=== PATIENT | female | born 1950 | race Caucasian/White ===

== ENCOUNTER 2020-09-03 06:56 | Day surgery (SDC) | payer OTHER ==
[~2020-09-03] VITALS: Ht 147.3 cm; Wt 50.3 kg
[~2020-09-03 06:56] MED LIST: DAPA1TAB4 PO; DULA1INJ SC; EZET10TA22 PO; METF-372 PO; MULT1TAB62 PO
[2020-09-03] MEDS ORDERED: LIDOCAINE 2%HCL (LOCAL ANESTH.) INJ 20ML MDV ONE (07:19)
[2020-09-03] MEDS ORDERED: HEPARIN SODIUM (PORCINE) 5000 UNITS/ML 1ML VIAL ONE (08:03)
[2020-09-03] MEDS ORDERED: VERAPAMIL 2.5MG/ML INJ 2ML VIAL IV ONE (08:03)
[2020-09-03] MEDS ORDERED: MIDAZOLAM HCL 1MG/1ML-2 ML VIAL ONE (08:03)
[2020-09-03] MEDS ORDERED: SODIUM CHL 0.9% 0 ML ONE (08:03)
[2020-09-03] MEDS ORDERED: fentaNYL CITRATE 100 MCG/2 ML VL ONE (08:03)
[2020-09-03] MEDS ORDERED: ANGIOMAX 250 MG VIAL IV ONE (08:03)
[2020-09-03] MEDS ORDERED: HYDROcodone-ACET 5/325MG TAB PO PRN (09:15)
[2020-09-03] MEDS ORDERED: ONDANSETRON HCL 4 MG/2 ML VIAL IV PRN (09:15)
[2020-09-03] MEDS ORDERED: ACETAMINOPHEN 500 MG TAB PO PRN (09:15)
== END 2020-09-03 11:55 | disposition home or self-care (01) ==
LOC: CATH 06:56
PROVIDERS: ATTEND Internal Medicine
DX: I25.118 Atherosclerotic heart disease of native coronary artery with other forms of angina pectoris (principal); E78.5 Hyperlipidemia, unspecified; E11.9 Type 2 diabetes mellitus without complications; Z88.8 Allergy status to other drugs, medicaments and biological substances; Z20.822 Contact with and (suspected) exposure to COVID-19
CPT/HCPCS: 93458; C1887; C1894; J1644; J2250; J3010; J7030; U0003; 99152

== ENCOUNTER 2023-02-09 12:40 | Inpatient (IN) | payer OTHER ==
[~2023-02-09] VITALS: Ht 147.3 cm; Wt 59.6 kg
[2023-02-09 14:06] LABS: Basophils # (auto) 0 10 ^3/uL (0-0.2); Eosinophils # (auto) 0.1 10 ^3/uL (0-0.8); Eosinophils % (auto) 0.8 % (0.0-7.0); Hematocrit 35.8 % (36.0-46.0); Hemoglobin 11.2 g/dL (12.2-16.2); Lymphocytes # (auto) 0.3 10 ^3/uL (0.4-5.4); Lymphocytes % (auto) 1.5 % (10.0-50.0); Mean Corpuscular Hemoglobin 27.4 pg (28.0-32.0); Mean Corpuscular Hgb Conc. 31.4 g/dL (32.0-36.0); Mean Corpuscular Volume 87.4 fL (80.0-100.0); Monocytes # (auto) 1.2 10 ^3/uL (0-1.3); Monocytes % (auto) 7.2 % (0.0-12.0); Neutrophils # (auto) 15.7 10 ^3/uL (1.6-8.6); Neutrophils % (auto) 90.5 % (37.0-80.0); Red Cell Distribution Width 14.9 % (11.8-14.3); White Blood Cell 17.3 10^3/uL (4.4-10.8)
[2023-02-09 14:24] LABS: Alanine Aminotransferase 38 U/L (7-40); Albumin 3.9 g/dL (3.2-4.8); Alkaline Phosphatase 140 U/L (46-116); Anion Gap 21.00001 (5-15); Aspartate Aminotransferase 41 U/L (13-40); BUN/Creatinine Ratio 19.7 (10.0-20.0); Bilirubin, Total 0.4 mg/dL (0.2-1.0); Blood Urea Nitrogen 29 mg/dL (9-23); Calcium 8.6 mg/dL (8.5-10.1); Chloride 98 mmol/L (98-107); Potassium 5.1 mmol/L (3.5-5.1); Sodium 129 mmol/L (136-145); Total Protein 6.1 g/dL (5.7-8.2)
[2023-02-09 15:01] LABS: Carbon Dioxide < 10 mmol/L (20-30); Glucose 423 mg/dL (74-106)
[2023-02-09] MEDS ORDERED: INSULIN DRIP 100 UNIT/100ML 100 ML IV SCH ×2 (15:30→18:30)
[2023-02-09] MEDS ORDERED: DEXTROSE (50%) 50ML SYRG IV PRN (15:30)
[2023-02-09] MEDS ORDERED: INSULIN LANTUS (GLARGINE) 1 /0.01ml (100units/ml) SC ONE (15:30)
[2023-02-09] MEDS: ACCU-CHEK COMFORT CURVE STRIP VI SCH ×5 (16:30→22:40)
[2023-02-09 17:02] LABS: Base Excess -18.8 mmol/L (-2.0-2.0)
[2023-02-09 17:07] LABS: Urine Bacteria NONE SEEN /hpf (None Seen); Urine Blood 1+ /uL (Negative); Urine Clarity Clear (Clear); Urine Color Colorless (Yellow); Urine Hyaline Cast FEW /lpf (0 - 2); Urine Protein, UAD 1+ (Negative); Urine Specific Gravity 1.018 (1.001-1.035); Urine Urobilinogen Normal (Negative); Urine WBC 22 /hpf (0 - 5); Urine pH 5.5 (5.0-8.0)
[2023-02-09] MEDS ORDERED: cefTRIAXone 1GM/50ML D5W 50 ML IV ONE (17:15)
[2023-02-09] MEDS: SODIUM CHLORIDE 0.9% 1,000 ML IV SCH (17:15)
[2023-02-09] MEDS ORDERED: NITROGLYCERIN 0.4 MG SL TAB SL PRN (17:15)
[2023-02-09] MEDS ORDERED: SODIUM CHLORIDE 0.9% 1,000 ML IV ONE (17:15)
[2023-02-09 17:17] LABS: Amphetamine Screen, Urine Neg (NEGATIVE); Barbiturate Scree,Urine Neg (NEGATIVE); Benzodiazephine Screen, Urine Neg (NEGATIVE); Cocaine Screen, Urine Neg (NEGATIVE)
[2023-02-09 17:18] LABS: Cannabinoid Screen, Urine Neg (NEGATIVE); Opiate Scree,Urine Neg (NEGATIVE); Phencyclidine Screen, Urine Neg (NEGATIVE)
[2023-02-09 18:22] LABS: COVID19 ANTIGEN SOFIA FIA NEGATIVE (NEGATIVE)
[2023-02-09 21:54] LABS: Lipase 27 U/L (12-53)
[2023-02-09 21:57] LABS: Cholesterol 149 mg/dL (< 200); HDL Cholesterol 39 mg/dL (40-59); Triglycerides 150 mg/dL (< 150)
[2023-02-09 21:58] LABS: LDL Cholesterol 49 mg/dL (< 100)
[2023-02-09] MEDS: MELATONIN 5 MG TAB PO SCH (22:06)
[2023-02-09] MEDS: D5W/SOD CHL 0.45% 1,000 ML IV SCH (22:07)
[2023-02-09 22:17] VITALS: PULSE 106; RESP 26; O2SAT 100
[2023-02-09 22:31] LABS: Rapid Influenza A Negative (Negative); Rapid Influenza B Negative (Negative)
[2023-02-09] MEDS: ONDANSETRON HCL 4 MG/2 ML VIAL IV PRN (22:56)
[2023-02-09] MEDS: MORPHINE SULFATE INJ 2 MG/ml SYRG IV PRN (23:00)
[2023-02-10 00:01] LABS: Chloride 106 mmol/L (98-107); Potassium 3.8 mmol/L (3.5-5.1); Sodium 131 mmol/L (136-145)
[2023-02-10 00:02] LABS: Anion Gap 9 (5-15); Calcium 7.8 mg/dL (8.7-10.4); Carbon Dioxide 16 mmol/L (20-30)
[2023-02-10 00:07] LABS: Blood Urea Nitrogen 23 mg/dL (9-23); Glucose 229 mg/dL (74-106)
[2023-02-10] MEDS: ACCU-CHEK COMFORT CURVE STRIP VI SCH ×16 (00:14→22:39)
[2023-02-10] MEDS: SODIUM CHLORIDE 0.9% 1,000 ML IV SCH ×3 (01:15→17:24)
[2023-02-10] MEDS ORDERED: POTASSIUM EFFERVESENT TAB 25 MEQ PO ONE (06:30)
[2023-02-10 07:11] LABS: Anion Gap 9 (5-15); Calcium 8.1 mg/dL (8.7-10.4); Carbon Dioxide 18 mmol/L (20-30); Chloride 105 mmol/L (98-107); Potassium 3.5 mmol/L (3.5-5.1); Sodium 132 mmol/L (136-145)
[2023-02-10 07:16] LABS: Glucose 151 mg/dL (74-106)
[2023-02-10 07:17] LABS: BUN/Creatinine Ratio 19.1 (10.0-20.0); Blood Urea Nitrogen 21 mg/dL (9-23); Magnesium 1.5 mg/dL (1.6-2.6)
[2023-02-10 07:19] LABS: Phosphorus 1.2 mg/dL (2.4-5.1)
[2023-02-10] MEDS ORDERED: SODIUM PHOSPHATES 24 MEQ in SODIUM CHL 0.9% 100 ML IV ONE (07:30)
[2023-02-10] MEDS ORDERED: MAGNESIUM SULFATE 1GM/100ML 100 ML IV ONE (07:30)
[2023-02-10 07:57] VITALS: PULSE 122; RESP 24; O2SAT 97
[2023-02-10] MEDS: D5W/SOD CHL 0.45% 1,000 ML IV SCH ×2 (09:19→17:25)
[2023-02-10] MEDS: cefTRIAXone 1GM/50ML D5W 50 ML IV SCH (09:32)
[2023-02-10] MEDS ORDERED: ENOXAPARIN SOD 30 MG/0.3 ML SYRINGE SC SCH (10:00)
[2023-02-10] MEDS: INSULIN LANTUS (GLARGINE) 1 /0.01ml (100units/ml) SC SCH ×2 (10:00→14:26)
[2023-02-10] MEDS: PANTOPRAZOLE 40 MG/10 ML VIAL INJ IV SCH (11:03)
[2023-02-10 12:22] LABS: Chloride 107 mmol/L (98-107); Potassium 4.1 mmol/L (3.5-5.1); Sodium 131 mmol/L (136-145)
[2023-02-10 12:23] LABS: Anion Gap 8 (5-15); Calcium 7.7 mg/dL (8.7-10.4); Carbon Dioxide 16 mmol/L (20-30)
[2023-02-10 12:28] LABS: BUN/Creatinine Ratio 14.6 (10.0-20.0); Blood Urea Nitrogen 13 mg/dL (9-23); Glucose 139 mg/dL (74-106)
[2023-02-10 12:29] LABS: Magnesium 1.9 mg/dL (1.6-2.6)
[2023-02-10 12:31] LABS: Phosphorus 1.6 mg/dL (2.4-5.1)
[2023-02-10] MEDS ORDERED: INSULIN DRIP 100 UNIT/100ML 100 ML IV SCH (14:15)
[2023-02-10 19:19] LABS: Chloride 109 mmol/L (98-107); Potassium 3.4 mmol/L (3.5-5.1); Sodium 134 mmol/L (136-145)
[2023-02-10 19:20] LABS: Anion Gap 8 (5-15); Carbon Dioxide 17 mmol/L (20-30)
[2023-02-10 19:21] LABS: Calcium 7.6 mg/dL (8.7-10.4)
[2023-02-10 19:25] LABS: Glucose 87 mg/dL (74-106)
[2023-02-10 19:26] LABS: BUN/Creatinine Ratio 15.3 (10.0-20.0); Blood Urea Nitrogen 13 mg/dL (9-23); Magnesium 1.7 mg/dL (1.6-2.6)
[2023-02-10 19:28] LABS: Phosphorus 1.3 mg/dL (2.4-5.1)
[2023-02-10 19:55] VITALS: PULSE 112; RESP 19; O2SAT 99
[2023-02-10] MEDS: MELATONIN 5 MG TAB PO SCH (21:14)
[2023-02-10] MEDS: ONDANSETRON HCL 4 MG/2 ML VIAL IV PRN (21:14)
[2023-02-10] MEDS: MORPHINE SULFATE INJ 2 MG/ml SYRG IV PRN (21:15)
[2023-02-11] MEDS: ACCU-CHEK COMFORT CURVE STRIP VI SCH ×9 (00:06→18:23)
[2023-02-11 00:13] LABS: Chloride 107 mmol/L (98-107); Potassium 3.4 mmol/L (3.5-5.1); Sodium 131 mmol/L (136-145)
[2023-02-11 00:14] LABS: Anion Gap 6 (5-15); Calcium 6.6 mg/dL (8.7-10.4); Carbon Dioxide 18 mmol/L (20-30)
[2023-02-11 00:19] LABS: BUN/Creatinine Ratio 13.4 (10.0-20.0); Blood Urea Nitrogen 11 mg/dL (9-23); Glucose 396 mg/dL (74-106)
[2023-02-11 00:20] LABS: Magnesium 1.5 mg/dL (1.6-2.6)
[2023-02-11] MEDS: D5W/SOD CHL 0.45% 1,000 ML IV SCH ×2 (01:55→11:00)
[2023-02-11] MEDS: SODIUM CHLORIDE 0.9% 1,000 ML IV SCH ×3 (03:42→15:45)
[2023-02-11 05:23] LABS: Basophils # (auto) 0 10 ^3/uL (0-0.2); Basophils % (auto) 0.2 % (0.0-2.0); Eosinophils # (auto) 0.1 10 ^3/uL (0-0.8); Eosinophils % (auto) 1.1 % (0.0-7.0); Hematocrit 27.7 % (36.0-46.0); Lymphocytes % (auto) 8.6 % (10.0-50.0); Mean Corpuscular Hgb Conc. 32.4 g/dL (32.0-36.0); Mean Corpuscular Volume 83.4 fL (80.0-100.0); Monocytes # (auto) 0.9 10 ^3/uL (0-1.3); Monocytes % (auto) 7.6 % (0.0-12.0); Neutrophils # (auto) 9.9 10 ^3/uL (1.6-8.6); Neutrophils % (auto) 82.5 % (37.0-80.0); Nucleated Red Blood Cells % 0.1 %; Red Blood Cells 3.33 10^6/uL (4.0-5.20); Red Cell Distribution Width 14.9 % (11.8-14.3); White Blood Cell 11.9 10^3/uL (4.4-10.8)
[2023-02-11 05:32] LABS: Anion Gap 9 (5-15); Carbon Dioxide 17 mmol/L (20-30); Chloride 108 mmol/L (98-107); Potassium 3.2 mmol/L (3.5-5.1); Sodium 134 mmol/L (136-145)
[2023-02-11 05:33] LABS: Calcium 7.5 mg/dL (8.7-10.4)
[2023-02-11 05:38] LABS: BUN/Creatinine Ratio 14.3 (10.0-20.0); Blood Urea Nitrogen 11 mg/dL (9-23); Glucose 84 mg/dL (74-106)
[2023-02-11 05:39] LABS: Magnesium 1.6 mg/dL (1.6-2.6)
[2023-02-11 05:40] LABS: Phosphorus 1.1 mg/dL (2.4-5.1)
[2023-02-11 07:40] VITALS: PULSE 98; RESP 27; O2SAT 99
[2023-02-11] MEDS: ENOXAPARIN SOD 40 MG/0.4 ML SYRINGE SC SCH (10:14)
[2023-02-11] MEDS: PANTOPRAZOLE 40 MG/10 ML VIAL INJ IV SCH (10:14)
[2023-02-11] MEDS: INSULIN LANTUS (GLARGINE) 1 /0.01ml (100units/ml) SC SCH ×2 (10:16→22:00)
[2023-02-11] MEDS: cefTRIAXone 1GM/50ML D5W 50 ML IV SCH (10:22)
[2023-02-11] MEDS ORDERED: DEXTROSE (50%) 50ML SYRG IV PRN (11:00)
[2023-02-11] MEDS: InsuLIN REG 1unit/0.01ml Soln (100units/ml) SC SCH ×2 (12:01→18:31)
[2023-02-11] MEDS: ONDANSETRON HCL 4 MG/2 ML VIAL IV PRN (15:53)
[2023-02-11] MEDS: MORPHINE SULFATE INJ 2 MG/ml SYRG IV PRN (18:31)
[2023-02-11 19:12] LABS: Chloride 107 mmol/L (98-107); Potassium 3.3 mmol/L (3.5-5.1); Sodium 133 mmol/L (136-145)
[2023-02-11 19:13] LABS: Anion Gap 10 (5-15); Calcium 7.7 mg/dL (8.5-10.1); Carbon Dioxide 16 mmol/L (20-30)
[2023-02-11 19:18] LABS: Glucose 156 mg/dL (74-106)
[2023-02-11 19:49] VITALS: PULSE 112; RESP 21; O2SAT 97
[2023-02-11 19:54] LABS: Blood Urea Nitrogen 6 mg/dL (9-23)
[2023-02-11] MEDS: MELATONIN 5 MG TAB PO SCH (22:00)
[2023-02-11 23:25] VITALS: PULSE 97; RESP 93; O2SAT 96
[2023-02-12] VITALS (7 sets, daily range): BP systolic 108–151; BP diastolic 47–73; PULSE 90–112; RESP 17–22; TEMP 98.2–101.4; O2SAT 91–97
[2023-02-12] MEDS ORDERED: GLIP5TAB12 PO (00:05)
[2023-02-12] MEDS: ACCU-CHEK COMFORT CURVE STRIP VI SCH ×5 (00:23→23:00)
[2023-02-12] MEDS: D5W/SOD CHL 0.45% 1,000 ML IV SCH (05:35)
[2023-02-12] MEDS: InsuLIN REG 1unit/0.01ml Soln (100units/ml) SC SCH ×5 (05:51→23:00)
[2023-02-12 06:33] LABS: Basophils # (auto) 0 10 ^3/uL (0-0.2); Basophils % (auto) 0.2 % (0.0-2.0); Eosinophils # (auto) 0.1 10 ^3/uL (0-0.8); Eosinophils % (auto) 0.6 % (0.0-7.0); Hematocrit 27.2 % (36.0-46.0); Lymphocytes # (auto) 0.7 10 ^3/uL (0.4-5.4); Lymphocytes % (auto) 6.7 % (10.0-50.0); Mean Corpuscular Hemoglobin 27.6 pg (28.0-32.0); Mean Corpuscular Volume 83.6 fL (80.0-100.0); Monocytes # (auto) 1.2 10 ^3/uL (0-1.3); Monocytes % (auto) 10.8 % (0.0-12.0); Neutrophils # (auto) 8.8 10 ^3/uL (1.6-8.6); Neutrophils % (auto) 81.7 % (37.0-80.0); Red Blood Cells 3.25 10^6/uL (4.0-5.20); Red Cell Distribution Width 15.1 % (11.8-14.3); White Blood Cell 10.8 10^3/uL (4.4-10.8)
[2023-02-12 06:41] LABS: Anion Gap 9 (5-15); Carbon Dioxide 19 mmol/L (20-30); Chloride 108 mmol/L (98-107); Potassium 2.7 mmol/L (3.5-5.1); Sodium 136 mmol/L (136-145)
[2023-02-12 06:43] LABS: Calcium 7.5 mg/dL (8.7-10.4)
[2023-02-12 06:47] LABS: Glucose 89 mg/dL (74-106)
[2023-02-12 06:48] LABS: Blood Urea Nitrogen 8 mg/dL (9-23)
[2023-02-12] MEDS: cefTRIAXone 1GM/50ML D5W 50 ML IV SCH (09:42)
[2023-02-12] MEDS: ENOXAPARIN SOD 40 MG/0.4 ML SYRINGE SC SCH (09:42)
[2023-02-12] MEDS: PANTOPRAZOLE 40 MG/10 ML VIAL INJ IV SCH (09:42)
[2023-02-12] MEDS: INSULIN LANTUS (GLARGINE) 1 /0.01ml (100units/ml) SC SCH ×2 (09:43→22:51)
[2023-02-12] MEDS: MORPHINE SULFATE INJ 2 MG/ml SYRG IV PRN ×2 (12:53→22:17)
[2023-02-12] MEDS ORDERED: ACETAMINOPHEN 325 MG TAB PO PRN (20:30)
[2023-02-12] MEDS ORDERED: DOCUSATE SOD 100 MG CAP PO PRN (20:30)
[2023-02-12] MEDS ORDERED: ACETAMINOPHEN 325 MG TAB PO ONE (22:07)
[2023-02-12] MEDS: MELATONIN 5 MG TAB PO SCH (22:09)
[2023-02-12] MEDS ORDERED: DOCUSATE SOD 100 MG CAP PO ONE (22:14)
[2023-02-13] VITALS (7 sets, daily range): BP systolic 106–143; BP diastolic 47–69; PULSE 90–104; RESP 16–20; TEMP 98.1–99.8; O2SAT 93–97
[2023-02-13] MEDS: D5W/SOD CHL 0.45% 1,000 ML IV SCH (02:39)
[2023-02-13 07:40] LABS: Chloride 108 mmol/L (98-107); Potassium 3.1 mmol/L (3.5-5.1); Sodium 141 mmol/L (136-145)
[2023-02-13 07:41] LABS: Anion Gap 8 (5-15); Calcium 8.1 mg/dL (8.5-10.1); Carbon Dioxide 25 mmol/L (20-30)
[2023-02-13 07:43] LABS: Hematocrit 27.5 % (36.0-46.0); Mean Corpuscular Hemoglobin 27.1 pg (28.0-32.0); Mean Corpuscular Hgb Conc. 32.6 g/dL (32.0-36.0); Red Blood Cells 3.31 10^6/uL (4.0-5.20)
[2023-02-13 07:45] LABS: Basophils % (manual) 0 (0.0-2.0); Blast Cells 0; Promyelocytes % 0; Reactive Lymphocytes 0
[2023-02-13 07:46] LABS: Blood Urea Nitrogen 7 mg/dL (9-23); Glucose 124 mg/dL (74-106)
[2023-02-13 08:32] LABS: Band Neutrophils % (manual) 8; Eosinophils % (manual) 1 (0-7); Lymphocytes % (manual) 5 (10.0-50.0); Metamyelocytes % 2; Monocytes % (manual) 6 (0-12); Myelocytes % 2; Platelet Estimate Adequate
[2023-02-13] MEDS: SODIUM CHLORIDE 0.9% 1,000 ML IV SCH ×3 (09:06→15:54)
[2023-02-13] MEDS: cefTRIAXone 1GM/50ML D5W 50 ML IV SCH (09:06)
[2023-02-13] MEDS: PANTOPRAZOLE 40 MG/10 ML VIAL INJ IV SCH (09:49)
[2023-02-13] MEDS: ENOXAPARIN SOD 40 MG/0.4 ML SYRINGE SC SCH (09:51)
[2023-02-13] MEDS: INSULIN LANTUS (GLARGINE) 1 /0.01ml (100units/ml) SC SCH ×2 (10:01→23:21)
[2023-02-13] MEDS: ACCU-CHEK COMFORT CURVE STRIP VI SCH ×3 (11:57→23:19)
[2023-02-13] MEDS: InsuLIN REG 1unit/0.01ml Soln (100units/ml) SC SCH ×3 (11:59→23:18)
[2023-02-13] MEDS ORDERED: POTASSIUM CHL 20 Meq TABLET PO ONE ×2 (15:30→16:00)
[2023-02-13] MEDS ORDERED: LACTULOSE 20Gm/30ML SOLN PO ONE (15:45)
[2023-02-13] MEDS ORDERED: LACTULOSE 20Gm/30ML SOLN ONE (15:59)
[2023-02-13] MEDS ORDERED: LACTULOSE 20Gm/30ML SOLN PO PRN ×2 (17:30→22:00)
[2023-02-13] MEDS: MELATONIN 5 MG TAB PO SCH (21:23)
[2023-02-13] MEDS: MORPHINE SULFATE INJ 2 MG/ml SYRG IV PRN (21:29)
[2023-02-14] MEDS: SODIUM CHLORIDE 0.9% 1,000 ML IV SCH ×3 (04:27→15:45)
[2023-02-14] MEDS: D5W/SOD CHL 0.45% 1,000 ML IV SCH (04:27)
[2023-02-14 04:49] VITALS: BP 145/61; PULSE 94; RESP 16; TEMP 99.2; O2SAT 99
[2023-02-14] MEDS: ACCU-CHEK COMFORT CURVE STRIP VI SCH ×3 (05:41→18:59)
[2023-02-14] MEDS: InsuLIN REG 1unit/0.01ml Soln (100units/ml) SC SCH ×3 (05:41→18:00)
[2023-02-14 06:27] LABS: Hematocrit 27.8 % (36.0-46.0); Hemoglobin 9.1 g/dL (12.2-16.2); Mean Corpuscular Hemoglobin 27.2 pg (28.0-32.0); Mean Corpuscular Hgb Conc. 32.7 g/dL (32.0-36.0); Mean Corpuscular Volume 83.3 fL (80.0-100.0); Red Blood Cells 3.34 10^6/uL (4.0-5.20); Red Cell Distribution Width 15.2 % (11.8-14.3); White Blood Cell 13.8 10^3/uL (4.4-10.8)
[2023-02-14 06:36] LABS: Anion Gap 8 (5-15); Carbon Dioxide 22 mmol/L (20-30); Chloride 108 mmol/L (98-107); Potassium 2.8 mmol/L (3.5-5.1); Sodium 138 mmol/L (136-145)
[2023-02-14 06:37] LABS: Calcium 7.7 mg/dL (8.7-10.4)
[2023-02-14 06:42] LABS: Glucose 82 mg/dL (74-106)
[2023-02-14 06:43] LABS: BUN/Creatinine Ratio 6.9 (10.0-20.0); Blood Urea Nitrogen < 5 mg/dL (9-23)
[2023-02-14 07:09] LABS: Basophils % (manual) 0 (0.0-2.0); Blast Cells 0; Eosinophils % (manual) 0 (0-7); Metamyelocytes % 0; Myelocytes % 0; Promyelocytes % 0; Reactive Lymphocytes 0
[2023-02-14 08:00] VITALS: PULSE 94; PULSE 99; RESP 18
[2023-02-14 08:52] LABS: Band Neutrophils % (manual) 2; Lymphocytes % (manual) 13 (10.0-50.0); Monocytes % (manual) 5 (0-12)
[2023-02-14 08:53] LABS: Platelet Estimate Adequate
[2023-02-14 09:00] VITALS: BP 105/52; PULSE 94; RESP 20; TEMP 98.7; O2SAT 98
[2023-02-14 09:06] VITALS: BP 105/52; PULSE 94; RESP 20; TEMP 98.7; O2SAT 93
[2023-02-14] MEDS: PANTOPRAZOLE 40 MG/10 ML VIAL INJ IV SCH (10:55)
[2023-02-14] MEDS: ENOXAPARIN SOD 40 MG/0.4 ML SYRINGE SC SCH (10:55)
[2023-02-14] MEDS: MORPHINE SULFATE INJ 2 MG/ml SYRG IV PRN (10:55)
[2023-02-14] MEDS: cefTRIAXone 1GM/50ML D5W 50 ML IV SCH (10:56)
[2023-02-14] MEDS: INSULIN LANTUS (GLARGINE) 1 /0.01ml (100units/ml) SC SCH (11:21)
[2023-02-14 13:00] VITALS: BP 132/67; PULSE 101; RESP 20; TEMP 98; O2SAT 95
[2023-02-14] MEDS ORDERED: INSU-567 XX (15:33)
[2023-02-14] MEDS ORDERED: BLOO1KIT60 XX (15:33)
[2023-02-14] MEDS ORDERED: INSLANTI SC (15:33)
[2023-02-14 16:28] VITALS: BP 122/59; PULSE 100; RESP 20; TEMP 98.4; O2SAT 92
== END 2023-02-14 19:35 | disposition home health service (06) | DRG 638 ==
LOC: ER 12:40 → EDBD 12:40 → TELE 17:06 → TELE-WESTW 02-11 17:06 → WEST WING 02-11 23:48 → TELE-WESTW 02-11 23:55
PROVIDERS: ADMIT Hospitalist; ATTEND Hospitalist
DX: E11.10 Type 2 diabetes mellitus with ketoacidosis without coma (principal); E87.1 Hypo-osmolality and hyponatremia; N39.0 Urinary tract infection, site not specified; N17.9 Acute kidney failure, unspecified; I25.10 Atherosclerotic heart disease of native coronary artery without angina pectoris; I10 Essential (primary) hypertension; K59.00 Constipation, unspecified; D72.829 Elevated white blood cell count, unspecified; Z20.822 Contact with and (suspected) exposure to COVID-19; E78.5 Hyperlipidemia, unspecified; Z91.199 Patient's noncompliance with other medical treatment and regimen due to unspecified reason
CPT/HCPCS: 36415; 36600; 71045; 80048; 80053; 80061; 80307; 81001; 82805; 82962; 83036; 83605; 83690; 83735; 83880; 84100; 84484; 85007; 85025; 85027; 87040; 87077; 87086; 87186; 87426; 87804; 93005; 93306; 96365; 96372; 99291; C9113; G0378; J1815; J2405

== ENCOUNTER 2024-07-27 16:32 | Inpatient (IN) | payer OTHER ==
[~2024-07-27] VITALS: Ht 148.6 cm; Wt 48.7 kg
[~2024-07-27 16:32] MED LIST changes: +BLOO1KIT60 XX; -DAPA1TAB4 PO; -DULA1INJ SC; -EZET10TA22 PO; +GLIP5TAB21 PO; +INSLANTI SC; +INSU-567 XX; -MULT1TAB62 PO
[2024-07-27] MEDS: SODIUM CHLORIDE 0.9% 1,000 ML IV ONE ×2 (16:57→21:15)
[2024-07-27 17:02] VITALS: PULSE 80; RESP 15; O2SAT 95
--- NOTE | 2024-07-27 17:11 | ED.PDOC ---
History of Present Illness HPI Comments This 74-year-old female who comes in with chief complaint of generalized weakness for the past three days. The patient denies any vomiting or diarrhea. The patient does have a history of diabetes and when the paramedics arrived, the patient had an Accu-Chek of [phone]. There has been no chest pain or shortness for breath. The patient is complaining of some nausea as well as polyuria as well as polydipsia. EN route, the patient's blood pressure was 164/73. The patient was given normal saline EN route. Upon arrival, the patient's Accu-Chek was 322. Chief Complaint: Hyperglycemia Time Seen by MD: 16:35 Primary Care Provider: UNKNOWN Reviewed Notes: Nurses Notes, Forensic Accountant Notes, Medications, Allergies (Allergies listed above) Allergies: Coded Allergies: Pseudoephedrine (Verified Adverse Reaction, Intermediate, PALPITATIONS, 02/09/23) Home Meds Active Scripts Insulin Syringe/Needle U-100 (ADVOCATE INSULIN SYRINGE/) 0.5 Mg/31 G Mis, MG XX, #30 Prov:YNES PAYNE MD 02/14/23 Blood Glucose Monitoring Suppl (D-Care Glucometer Kit/Glu W/Device) 1 Kit Kit, KIT XX, #1 Prov:YNES PAYNE MD 02/14/23 Insulin Glargine (Lantus) 100 Unit/Ml Inj, 15 UNITS SC BID for 30 Days, #30 INJ Prov:YNES PAYNE MD 02/14/23 Reported Medications Glipizide (Glipizide) 5 Mg Tab, 2 TAB PO BID 02/12/23 Metformin Hydrochloride (Metformin Hcl) 1,000 Mg Tab, 1 TAB PO BID for DIABETES 08/30/20 Information Source: Patient, Emergency Med Personnel Mode of Arrival: EMS Severity: Moderate Timing: Days Duration: Since onset Prehospital treatment: Accucheck (456), 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, IVF Associated signs and symptoms Associated shaking with nausea and polyuria and polydipsia Past Medical History PAST MEDICAL HISTORY: DM, High Lipids Surgical History: Appendectomy, Hysterectomy, Tonsillectomy Surgical History (Other): Right knee surgery LINE SERVICE SUPERVISOR History: Denies all LINE SERVICE SUPERVISOR Hx Family History Family History: Family hx of Cancer Social History Smoker: Non-Smoker Alcohol: Occasionally Drugs: Denies Drug Use Lives In: Home Constitutional: reports: weakness, others (Shaking); denies: chills, diaphoresis, fatigue, fever, malaise, sweats EENTM: denies: blurred vision, double vision, ear bleeding, ear discharge, ear drainage, ear pain, ear ringing, eye pain, eye redness, hearing loss, mouth ty n, mouth swelling, nasal discharge, nose bleeding, nose congestion, nose pain, photophobia, tearing, throat pain, throat swelling, voice changes, others Respiratory: denies: cough, hemoptysis, orthopnea, SOB at rest, shortness of breath, SOB with excertion, stridor, wheezing, others Cardiovascular: denies: chest pain, dizzy spells, diaphoresis, Dyspnea on exertion, edema, irregular heart beat, left arm pain, lightheadedness, palpitations, PND, syncope, others Gastrointestinal: reports: nausea; denies: abdomen distended, abdominal pain, blood streaked bowels, constipated, diarrhea, dysphagia, difficulty swallowing, hematemesis, melena, poor appetite, poor fluid intake, rectal bleeding, rectal pain, vomiting, others Genitourinary: denies: abnormal vagina bleeding, burning, dyspareunia, dysuria, flank pain, frequency, hematuria, incontinence, pain, , vagina discharge, urgency, others Neurological: denies: dizziness, fainting, headache, left sided numbness, left sided weakness, numbness, paresthesia, pre-existing deficit, right sided numbness, right sided weakness, seizure, speech problems, tingling, tremors, weakness, others Musculoskeletal: denies: back pain, gout, joint pain, joint swelling, muscle pain, muscle stiffness, neck pain, others Integumetry: denies: bruises, change in color, change in hair/nails, dryness, laceration, lesions, lumps, rash, wounds, others Allergic/Immunocompromised: denies: Difficulty Healing, Frequent Infections, Hives, Itching, others Hematologic/Lymphatic: denies: anemia, blood clots, easy bleeding, easy bruisin g, swollen glands, others Endocrine: reports: excessive thirst, excessive urination; denies: excessive hunger, excessive sweating, flushing, intolerance to cold, intolerance to heat, unexplained weight gain, unexplained weight loss, others Psychiatric: denies: anxiety, bipolar disorder, depression, hopeless, panic disorder, schizophrenia, sleepless, suicidal, others Physical Exam General Appearance: Moderate Distress, Thin HEENT: Normal ENT Inspection, Pharynx Normal, TMs Normal Neck: Full Range of Motion, Non-Tender, Normal, Normal Inspection Respiratory: Chest Non-Tender, Lungs Clear, No Accessory Muscle Use, No Respiratory Distress, Normal Breath Sounds Cardiovascular: No Edema, No JVD, No Murmur, No Gallop, Normal Peripheral Pulses, Regular Rate/Rhythm Breast Exam: Deferred Gastrointestinal: No Organomegaly, Non Tender, No Pulsatile Mass, Normal Bowel Sounds, Soft Genitalia: Deferred Pelvic: Deferred Rectal: Deferred Extremities: No calf tenderness, Normal capillary refill, No pedal edema Musculoskeletal : Apperance: Normal Neurologic: Alert, strike off machine operator II-XII nml as Tested, Motor Weakness, Normal Mood, No Sensory Deficits Cerebellar Function: Unable to Test Reflexes: Normal Skin: Dry, Pallor, Warm Lymphatic: No Adenopathy Was a procedure done? Was a procedure done?: No EKG EKG : Pulse Rate (adult): 87 Kyle: Normal Cardiac Rhythm: NSR Block: None ST: Nonsp Differential Dx Considerations may include: DKA, generalized weakness, hyperglycemia, UTI, sepsis X-Ray, Labs, Meds, VS Vital Signs Date Time Temp Pulse Resp B/P (MAP) Pulse Ox O2 Delivery O2 Flow Rate FiO2 07/27/24 18:00 81 22 145/82 (103) 92 07/27/24 17:11 87 07/27/24 17:04 98.3 85 19 137/89 (105) 93 98.3 07/27/24 17:02 80 15 95 Room Air* 0 21 07/27/24 16:47 98.7 89 20 164/73 (103) 95 98.7 07/27/24 16:36 87 Lab Test 07/27/24 17:30 07/27/24 17:28 07/27/24 17:07 07/27/24 16:54 Range/Units White Blood Count 7.0 4.4-10.8 10^3/uL Red Blood Count 4.78 4.0-5.20 10^6/uL Hemoglobin 12.9 12.2-16.2 g/dL Hematocrit 40.1 36.0-46.0 % Mean Corpuscular Volume 83.8 80.0-100.0 fL Mean Corpuscular Hemoglobin 27.0 L 28.0-32.0 pg Mean Corpuscular Hemoglobin Concent 32.2 32.0-36.0 g/dL Red Cell Distribution Width 14.1 11.8-14.3 % Platelet Count 305 140-450 10^3/uL Mean Platelet Volume 8.0 6.9-10.8 fL Neutrophils (%) (Auto) 68.1 37.0-80.0 % Lymphocytes (%) (Auto) 23.3 10.0-50.0 % Monocytes (%) (Auto) 5.9 0.0-12.0 % Eosinophils (%) (Auto) 1.5 0.0-7.0 % Basophils (%) (Auto) 1.2 0.0-2.0 % Neutrophils # (Auto) 4.8 1.6-8.6 10 ^3/uL Lymphocytes # (Auto) 1.6 0.4-5.4 10 ^3/uL Monocytes # (Auto) 0.4 0-1.3 10 ^3/uL Eosinophils # (Auto) 0.1 0-0.8 10 ^3/uL Basophils # (Auto) 0.1 0-0.2 10 ^3/uL Nucleated Red Blood Cells 0.0 % Sodium Level 140 136-145 mmol/L Potassium Level 5.1 3.5-5.1 mmol/L Chloride Level 108 H 98-107 mmol/L Carbon Dioxide Level 19 L 20-31 mmol/L Anion Gap 13 5-15 Blood Urea Nitrogen 20 9-23 mg/dL Creatinine 1.11 H 0.550-1.02 mg/dL Glomerular Filtration Rate Calc 52 >90 mL/min BUN/Creatinine Ratio 18.0 10.0-20.0 Serum Glucose 387 H 74-106 mg/dL Calcium Level 9.6 8.7-10.4 mg/dL Beta-Hydroxybutyric Acid > 4.500 H < 0.4 mmol/L Blood Gas Specimen Type Arterial Blood Gas Sample Site Right radial Blood Gas Patient Temperature 37.0 Arterial Blood Date Drawn [id number] Arterial Blood pH 7.352 7.350-7.450 Arterial Blood Partial Pressure CO2 28.0 L 32.0-45.0 mmHg Arterial Blood Partial Pressure O2 71.3 L 83.0-108.0 mmHg Arterial Blood HCO3 15.2 L 21.0-28.0 mmol/L Arterial Blood Oxygen Saturation 93.1 L 94.0-98.0 % Arterial Blood Base Excess -8.9 L -2.0-3.0 mmol/L Arterial Blood Oxyhemoglobin 92.1 L 94.0-98.0 % Arterial Blood Carboxyhemoglobin 1.1 0.5-1.5 % Arterial Blood Methemoglobin 0.0 0.0-1.5 % Christian Test Yes Blood Gas Total Hemoglobin 13.30 12.0-16.0 g/dL Blood Gas Modality Room air FiO2 % 21.0 Urine Color Colorless Yellow Urine Clarity Clear Clear Urine pH 5.5 5.0-9.0 Urine Specific [place] 1.016 1.001-1.035 Urine Protein Negative Negative Urine Ketones 2+ H Negative Urine Blood Negative Negative /uL Urine Nitrite 2+ H Negative Urine Bilirubin Negative Negative Urine Urobilinogen Normal Negative mg/dL Urine Leukocyte Esterase Negative Negative /uL Urine RBC <1 0 - 4 /hpf Urine Microscopic WBC < 1 0-5 /HPF Urine Squamous Epithelial Cells Few <5 /hpf Urine Bacteria None seen None Seen /hpf Urine Mucus Few None Seen Urine Glucose 4+ H Normal mg/dL POC Glucose 380 H 70-106 mg/dl Current Medications Medications (Trade) Dose Ordered Sig/Barbara Route Start Time Stop Time Status Last Admin Sodium Chloride 1,000 ml @ 1,000 mls/hr Q1H ONCE IV 07/27/24 17:00 07/27/24 17:59 DC 07/27/24 16:57 IV Hep-Lock was established The patient was given a 1 L bolus of normal saline The urine test is negative for any infection The CBC is within normal limits The chemistry panel is within normal limits The beta hydroxybutyric acid is greater than 4.5 At this time, the patient is admitted to the hospitalist The patient understands and agrees with the management. Images Reviewed?: Images reviewed and evaluated by me Time of 1ST Reevaluation: 17:10 Reevaluation 1ST: Unchanged Patient Education/Counseling: Diagnosis, Treatment, Prognosis Family Education/Counseling: No Family Present Departure 1 Departure Time of Disposition: 18:47 Impression: Primary Impression: Uncontrolled diabetes mellitus Qualified Codes: E13.65 - Other specified diabetes mellitus with hyperglycemia Additional Impression: Generalized weakness Disposition: 09 ADMITTED INPATIENT Admit to: [facility] Condition: Fair Critical Care Note Critical Care Time?: Yes (55 min-critical care time only) Stability Stability form required: Yes Unstable for transfer: Telemetry monitoring (Telemetry monitoring required), ED Physician Assesment (Clinical assesment) Heart Score Heart Score: Heart Score Response (Comments) Value History N/A 0 EKG N/A 0 Age N/A 0 Risk Factors N/A 0 Troponin N/A 0 Total 0 SPIKE ALONSO MD July 27, 2024 17:11
[2024-07-27 17:36] LABS: Base Excess -8.9 mmol/L (-2.0-3.0)
[2024-07-27 17:52] LABS: Urine Bacteria None Seen /hpf (None Seen)
[2024-07-27 17:54] LABS: Basophils # (auto) 0.1 10 ^3/uL (0-0.2); Basophils % (auto) 1.2 % (0.0-2.0); Eosinophils # (auto) 0.1 10 ^3/uL (0-0.8); Eosinophils % (auto) 1.5 % (0.0-7.0); Hematocrit 40.1 % (36.0-46.0); Hemoglobin 12.9 g/dL (12.2-16.2); Lymphocytes # (auto) 1.6 10 ^3/uL (0.4-5.4); Lymphocytes % (auto) 23.3 % (10.0-50.0); Mean Corpuscular Hgb Conc. 32.2 g/dL (32.0-36.0); Mean Corpuscular Volume 83.8 fL (80.0-100.0); Monocytes # (auto) 0.4 10 ^3/uL (0-1.3); Monocytes % (auto) 5.9 % (0.0-12.0); Neutrophils # (auto) 4.8 10 ^3/uL (1.6-8.6); Neutrophils % (auto) 68.1 % (37.0-80.0); Platelet Count (auto) 305 10^3/uL (140-450); Red Blood Cells 4.78 10^6/uL (4.0-5.20); Red Cell Distribution Width 14.1 % (11.8-14.3)
[2024-07-27 17:57] LABS: Sodium 140 mmol/L (136-145)
[2024-07-27 17:58] LABS: Anion Gap 13 (5-15)
[2024-07-27 17:59] LABS: Calcium 9.6 mg/dL (8.7-10.4)
[2024-07-27 18:04] LABS: Blood Urea Nitrogen 20 mg/dL (9-23)
[2024-07-27 18:08] LABS: Carbon Dioxide 19 mmol/L (20-31); Chloride 108 mmol/L (98-107); Glucose 387 mg/dL (74-106); Potassium 5.1 mmol/L (3.5-5.1)
[2024-07-27 18:20] LABS: Urine Blood Negative /uL (Negative); Urine Clarity Clear (Clear); Urine Color Colorless (Yellow); Urine Mucus FEW (None Seen); Urine Protein, UAD Negative (Negative); Urine Specific Gravity 1.016 (1.001-1.035); Urine Squamous Epithelial Cell FEW /hpf (<5); Urine Urobilinogen Normal (Negative); Urine pH 5.5 (5.0-9.0)
[2024-07-27 18:21] LABS: Urine WBC < 1 /HPF (0-5)
--- NOTE | 2024-07-27 18:21 | DVH ---
CHEST RADIOGRAPH Indication: Hyperglycemia as well as weakness Technique: Single frontal view of the chest was obtained Comparison: XY CHEST PORTABLE on DOS: 02/09/23 FINDINGS: Lines and Tubes: None Lungs: No focal consolidation. Pleura: No effusion. No pneumothorax. Cardiomediastinal contours: Unremarkable Bones: No acute osseous abnormality. IMPRESSION: No acute cardiopulmonary disease.
[2024-07-27 20:00] VITALS: PULSE 87; RESP 18; O2SAT 94
[2024-07-27] MEDS ORDERED: DEXTROSE (50%) 50ML SYRG IV PRN (21:15)
[2024-07-27] MEDS ORDERED: ONDANSETRON HCL 4 MG/2 ML VIAL IV PRN (21:15)
--- NOTE | 2024-07-27 21:57 | DVH ---
CT HEAD WITHOUT CONTRAST INDICATION: dizziness, headaches COMPARISON: None TECHNIQUE: CT of the head without intravenous contrast. RADIATION DOSE: CTDIvol: mGy, DLP: mGy*cm FINDINGS: There is no evidence of intracranial hemorrhage, infarct, extra-axial collection, mass effect, midlin e shift, herniation or hydrocephalus. The ghosh-white differentiation is intact. Mild ventricular and sulcal enlargement related to mild cerebral volume loss. Chronic mucosal thickening in left sphenoid sinus, small mucus retention cyst in left maxillary sinus . Otherwise unremarkable. Mastoid air cells and middle ear cavities are clear. Soft tissues and osseo us structures are unremarkable. IMPRESSION: No intracranial abnormality identified.
[2024-07-27] MEDS: ACCU-CHEK COMFORT CURVE STRIP VI SCH (22:04)
[2024-07-27] MEDS: InsuLIN REG 1unit/0.01ml Soln (100units/ml) SC SCH (22:16)
[2024-07-27] MEDS: INSULIN LANTUS (GLARGINE) 1 /0.01ml (100units/ml) SC ONE (23:15)
[2024-07-28] VITALS (9 sets, daily range): BP systolic 138–174; BP diastolic 76–89; PULSE 80–99; RESP 16–18; TEMP 98.1–98.9; O2SAT 94–98
[2024-07-28 02:15] LABS: Potassium 4.1 mmol/L (3.5-5.1); Sodium 140 mmol/L (136-145)
[2024-07-28 02:16] LABS: Anion Gap 9 (5-15); Calcium 8.8 mg/dL (8.7-10.4); Carbon Dioxide 23 mmol/L (20-31)
[2024-07-28 02:21] LABS: Blood Urea Nitrogen 19 mg/dL (9-23)
[2024-07-28 02:26] LABS: Chloride 108 mmol/L (98-107); Glucose 251 mg/dL (74-106)
--- NOTE | 2024-07-28 02:54 | DVHHP2 ---
Admitting Diagnosis: Dizziness, Palpitations, DM with uncontrolled hyperglycemia History of Present Illness History Source: Patient Exam Limitations: No limitations HPI Mrs. Adrienne Scott 74-year-old female with a history of DM2, HLD, appendectomy, hysterectomy, tonsillectomy who presents with a chief complaint of generalized weakness, bilateral upper extremity tingling for the past three days. The patient denies any vomiting or diarrhea. Patient reports she was having dizziness, palpitations and an episode of "blacking out" for a couple of seconds without any syncopal episode. Patient reports she has not been taking her antidiabetics x 2 days due to not feeling well and having a poor appetite. Patient denies chest pain, dyspnea, blurry vision, nausea, vomiting, fevers, chills. Patient admitted for further evaluation. Home Meds Active Scripts Insulin Glargine (Lantus) 100 Unit/Ml Inj, 15 UNITS SC BID for 30 Days, #30 INJ Prov:YNES PAYNE MD 02/14/23 Reported Medications Insulin Detemir (Levemir) Inj, 25 UNIT SC BID 07/28/24 Ezetimibe (Ezetimibe) 10 Mg Tab, 1 TAB PO DAILY 07/28/24 Sertraline HCl (Sertraline HCl) 50 Mg Tab, 1 TAB PO DAILY 07/28/24 Semaglutide (Rybelsus) 7 Mg Tab, 1 TAB PO DAILY 07/28/24 Metformin Hydrochloride (Metformin Hcl) 1,000 Mg Tab, 1 TAB PO BID for DIABETES 08/30/20 Past Medical History Cardiac: Hyperlipidemia Pulmonary: No pertinent Hx Central Nervous System: No pertinent Hx GI: No pertinent Hx Hemotology/Oncology: No pertinent Hx Hepatobiliary: No pertinent Hx Psychiatric: No pertinent Hx Musculoskeletal: No pertinent Hx Rheumotologic: No pertinent Hx Infectious Disease: No peritnent Hx ENT: No pertinent Hx Renal/: No pertinent Hx Endocrine: NIDDM Dermatology: No pertinent Hx Past Surgical History: Appendectomy, Hysterctomy, Tonsillectomy Patient Family History: FH: cancer G8 MOTHER G8 FATHER Smoker: No Hx (Negative) Alocohol: None Drugs: None Lives with: With family Domestic Violence: Neg Review of Systems Constitutional: Weakness Ears, Nose, & Throat: No symptom reported Eyes: No symptom reported Pulmonary/Respiratory: No symptom reported Cardiovascular: Palpitations, Lt Headedness Gastrointestinal: No symptom reported Genitourinary: No symptom reported Musculoskeletal: No symptom reported Skin: No symptom reported Psychiatric: No symptom reported Endocrine: No symptom reported Hemotologic/Lymphatic: No symptom reported All Other Systems Dizziness H&P Exam Vital Signs Vital Signs Date Time Temp Pulse Resp B/P (MAP) Pulse Ox O2 Delivery O2 Flow Rate FiO2 07/27/24 21:59 108 22 151/71 (97) 96 07/27/24 20:00 Room Air* 0 21 07/27/24 19:45 98.9 98.9 General Appeara: Well developed, Well nourished, Normal Appearance Head Exam: Normal inspection Neck Exam: Normal inspection, Non-tender, Normal alignment Eye Exam: bilateral eye Normal inspection, bilateral eye PERRL, bilateral eye EOMI Ear Exam: bilateral ear Auricle normal Nasal Exam: Normal inspection Mouth: Normal Inspection Pulmonary/Respiratory: Normal inspection, Normal breath sounds, Chest non- tender, Lungs clear Cardiovascular/Chest: Normal inspection, Regular rate, Normal Rhythm Peripheral Pulses: 2+ dorsalis pedis (R), 2+ dorsalis pedis (L), 2+ Radial (R), 2+ Radial (L) Abdominal Exam: Normal bowel sounds, Soft, No tenderness Rectal Exam: Deferred Pelvic Exam: Not done 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: Normal hearing, Normal speech, PERRL Motor/Sensory: Normal sensory function, Normal motor function Neuro/Mental St: Alert, Oriented Appearance: Appropriate appearance, Appropriate insight Eye contact/ Speech: Cooperative, Good eye contact, Normal speech Thoughts/Psych: Normal thought pattern Skin Exam: Normal inspection, Normal color, Warm/dry Labs/Xrays Labs Test 07/28/24 01:49 07/27/24 22:03 07/27/24 17:30 07/27/24 17:28 Range/Units Sodium Level 140 136-145 mmol/L Potassium Level 4.1 3.5-5.1 mmol/L Chloride Level 108 H 98-107 mmol/L Carbon Dioxide Level 23 20-31 mmol/L Anion Gap 9 5-15 Blood Urea Nitrogen 19 9-23 mg/dL Creatinine 1.12 H 0.550-1.02 mg/dL Glomerular Filtration Rate Calc 52 >90 mL/min BUN/Creatinine Ratio 17.0 10.0-20.0 Serum Glucose 251 H 74-106 mg/dL Calcium Level 8.8 8.7-10.4 mg/dL Troponin I High Sensitivity 5 </=34 ng/L POC Glucose 517 *H 70-106 mg/dl White Blood Count 7.0 4.4-10.8 10^3/uL Red Blood Count 4.78 4.0-5.20 10^6/uL Hemoglobin 12.9 12.2-16.2 g/dL Hematocrit 40.1 36.0-46.0 % Mean Corpuscular Volume 83.8 80.0-100.0 fL Mean Corpuscular Hemoglobin 27.0 L 28.0-32.0 pg Mean Corpuscular Hemoglobin Concent 32.2 32.0-36.0 g/dL Red Cell Distribution Width 14.1 11.8-14.3 % Platelet Count 305 140-450 10^3/uL Mean Platelet Volume 8.0 6.9-10.8 fL Neutrophils (%) (Auto) 68.1 37.0-80.0 % Lymphocytes (%) (Auto) 23.3 10.0-50.0 % Monocytes (%) (Auto) 5.9 0.0-12.0 % Eosinophils (%) (Auto) 1.5 0.0-7.0 % Basophils (%) (Auto) 1.2 0.0-2.0 % Neutrophils # (Auto) 4.8 1.6-8.6 10 ^3/uL Lymphocytes # (Auto) 1.6 0.4-5.4 10 ^3/uL Monocytes # (Auto) 0.4 0-1.3 10 ^3/uL Eosinophils # (Auto) 0.1 0-0.8 10 ^3/uL Basophils # (Auto) 0.1 0-0.2 10 ^3/uL Nucleated Red Blood Cells 0.0 % Beta-Hydroxybutyric Acid > 4.500 H < 0.4 mmol/L Thyroid Stimulating Hormone (TSH) 0.84 0.55-4.78 uIU/mL Free Thyroxine (T4) Calculated 1.17 0.89-1.76 ng/dL Blood Gas Specimen Type Arterial Blood Gas Sample Site Right radial Blood Gas Patient Temperature 37.0 Arterial Blood Date Drawn [id number] Arterial Blood pH 7.352 7.350-7.450 Arterial Blood Partial Pressure CO2 28.0 L 32.0-45.0 mmHg Arterial Blood Partial Pressure O2 71.3 L 83.0-108.0 mmHg Arterial Blood HCO3 15.2 L 21.0-28.0 mmol/L Arterial Blood Oxygen Saturation 93.1 L 94.0-98.0 % Arterial Blood Base Excess -8.9 L -2.0-3.0 mmol/L Arterial Blood Oxyhemoglobin 92.1 L 94.0-98.0 % Arterial Blood Carboxyhemoglobin 1.1 0.5-1.5 % Arterial Blood Methemoglobin 0.0 0.0-1.5 % Christian Test Yes Blood Gas Total Hemoglobin 13.30 12.0-16.0 g/dL Blood Gas Modality Room air FiO2 % 21.0 Test 07/27/24 17:07 Range/Units Urine Color Colorless Yellow Urine Clarity Clear Clear Urine pH 5.5 5.0-9.0 Urine Specific [place] 1.016 1.001-1.035 Urine Protein Negative Negative Urine Ketones 2+ H Negative Urine Blood Negative Negative /uL Urine Nitrite 2+ H Negative Urine Bilirubin Negative Negative Urine Urobilinogen Normal Negative mg/dL Urine Leukocyte Esterase Negative Negative /uL Urine RBC <1 0 - 4 /hpf Urine Microscopic WBC < 1 0-5 /HPF Urine Squamous Epithelial Cells Few <5 /hpf Urine Bacteria None seen None Seen /hpf Urine Mucus Few None Seen Urine Glucose 4+ H Normal mg/dL Assessment/Plan Problem List: (1) Dizziness (2) Palpitations (3) Generalized weakness (4) Uncontrolled diabetes mellitus Plan This is a 74 yo female with known history of DM2, Hyperlipidemia, appendectomy, hysterectomy, tonsillectomy who presents to the hospital with generalized weakness, dizziness, headaches, bilateral arm tingling x 3 days. Patient found to have 1. Dizziness 2. Palpitations 3. DM with uncontrolled hyperglycemia Plan Admit Telemetry unit Cardiology consultation, 2D echocardiogram, serial troponin levels TSH level A1C level Glucose monitoring ac & hs coverage with insulin sliding scale GI ppx DVT ppx Diabetic education referral Discussed all above with patient who verbalizes agreement and understanding of care plan. All questions were answered. Discussed with supervising MD. Patient's chart is reviewed. Patient is seen evaluated and admitted by nurse practitioner. I agree with her evaluation, documentation, assessment and care plan as outlined. Plan discussed with: Patient, Other Code Visit Code Visit Total Time (mins): 45 MARIVEL VEGA July 28, 2024 02:54 FERNANDO NAJERA MD July 28, 2024 13:01
[2024-07-28] MEDS: ACETAMINOPHEN 325 MG TAB PO PRN (05:21)
[2024-07-28 06:22] LABS: Basophils # (auto) 0.1 10 ^3/uL (0-0.2); Basophils % (auto) 0.8 % (0.0-2.0); Eosinophils # (auto) 0.2 10 ^3/uL (0-0.8); Eosinophils % (auto) 3.4 % (0.0-7.0); Hematocrit 35.4 % (36.0-46.0); Hemoglobin 11.6 g/dL (12.2-16.2); Lymphocytes # (auto) 2.5 10 ^3/uL (0.4-5.4); Lymphocytes % (auto) 34.3 % (10.0-50.0); Mean Corpuscular Hemoglobin 26.9 pg (28.0-32.0); Mean Corpuscular Hgb Conc. 32.7 g/dL (32.0-36.0); Mean Corpuscular Volume 82.3 fL (80.0-100.0); Monocytes # (auto) 0.9 10 ^3/uL (0-1.3); Monocytes % (auto) 11.9 % (0.0-12.0); Neutrophils # (auto) 3.6 10 ^3/uL (1.6-8.6); Neutrophils % (auto) 49.6 % (37.0-80.0); Platelet Count (auto) 284 10^3/uL (140-450); Red Cell Distribution Width 14.1 % (11.8-14.3); White Blood Cell 7.2 10^3/uL (4.4-10.8)
[2024-07-28 06:34] LABS: Sodium 141 mmol/L (136-145)
[2024-07-28 06:35] LABS: Anion Gap 9 (5-15); Carbon Dioxide 22 mmol/L (20-31)
[2024-07-28 06:39] LABS: Calcium 8.4 mg/dL (8.7-10.4); Chloride 110 mmol/L (98-107)
[2024-07-28 06:40] LABS: BUN/Creatinine Ratio 14.4 (10.0-20.0); Blood Urea Nitrogen 15 mg/dL (9-23)
[2024-07-28] MEDS ORDERED: SEMA7TAB2 PO (06:42)
[2024-07-28] MEDS ORDERED: LEVEMIR SC (06:42)
[2024-07-28] MEDS ORDERED: EZET-10 PO (06:42)
[2024-07-28] MEDS ORDERED: SERT-289 PO (06:42)
[2024-07-28 06:50] LABS: Glucose 270 mg/dL (74-106)
[2024-07-28] MEDS: INSULIN LANTUS (GLARGINE) 1 /0.01ml (100units/ml) SC SCH ×2 (09:42→21:40)
[2024-07-28] MEDS: FAMOTIDINE 20 MG TAB PO SCH (09:43)
[2024-07-28] MEDS: ENOXAPARIN SOD 40 MG/0.4 ML SYRINGE SC SCH (09:43)
--- NOTE | 2024-07-28 11:47 | DVHINCON2 ---
WENDY JEAN RESDIENT 07/28/24 1147: Date Seen: July 28, 2024 Reason for Consultation Palpitation History of Present Illness Discussed with the per year old female with past medical history of hypertension, uncontrolled diabetes type 2 (has history of DKA) the patient, came to the hospital due to generalized weakness since 1 week. Per patient, she has not been feeling well since 1 week and also reports bilateral upper and lower limb tingling, fatigue, decreased oral intake and had a feeling of racing heart 2 days back for 5 minutes.. She denies fever, chest pain, shortness of breath, nausea, vomiting or any recent sick contact. Per patient he she has not been feeling well since 1 week and stopped taking diabetes medicine. PMHx:hypertension, uncontrolled diabetes type 2 (has history of DKA) and the patient PSHx: Hysterectomy, appendectomy, tonsillectomy Family history: Noncontributory Social history: Denies smoking or any other drug use Home medication: Insulin detemir 20 units b.i.d., metformin 1 g b.i.d., ezetimibe, Ozempic and sertraline Allergic history: Pseudoephedrine Patient seen and examined at bedside. Patient has no active complaint including chest pain, shortness of breaths and palpitation. Past Medical History Per H&P Past Surgical History Per H&P Family History: FH: cancer G8 MOTHER G8 FATHER Allergies: Coded Allergies: Pseudoephedrine (Verified Adverse Reaction, Intermediate, PALPITATIONS, 02/09/23) Home Meds Active Scripts Insulin Glargine (Lantus) 100 Unit/Ml Inj, 15 UNITS SC BID for 30 Days, #30 INJ Prov:YNES PAYNE MD 02/14/23 Reported Medications Insulin Detemir (Levemir) Inj, 25 UNIT SC BID 07/28/24 Ezetimibe (Ezetimibe) 10 Mg Tab, 1 TAB PO DAILY 07/28/24 Sertraline HCl (Sertraline HCl) 50 Mg Tab, 1 TAB PO DAILY 07/28/24 Semaglutide (Rybelsus) 7 Mg Tab, 1 TAB PO DAILY 07/28/24 Metformin Hydrochloride (Metformin Hcl) 1,000 Mg Tab, 1 TAB PO BID for DIABETES 08/30/20 Current Medications Current Medications Medications (Trade) Dose Ordered Sig/Barbara Route PRN Reason Start Time Stop Time Status Last Admin Diagnostic Test (Pha) (Accu-Chek Comfort Curve T) 1 strip ACHS 07/27/24 22:00 07/28/24 06:05 Insulin Human Regular (InsuLIN R) ACHS SC 07/27/24 22:00 07/28/24 06:10 Dextrose 50 ml UD PRN IV Blood Sugar LESS THAN 60 07/27/24 21:15 Acetaminophen (Tylenol Tablet) 650 mg Q6HPRN PRN PO PAIN SCALE 1-3 OR TEMP>100.4 07/27/24 21:15 07/28/24 05:21 Ondansetron HCl (Zofran) 4 mg Q6HP PRN IV NAUSEA / VOMITING 07/27/24 21:15 Insulin Glargine (Lantus) 15 units BID SC 07/28/24 10:00 07/28/24 09:42 Hydralazine HCl (Apresoline Injection) 10 mg Q6HPRN PRN IV SBP>160 07/27/24 23:15 Enoxaparin Sodium (Lovenox) 40 mg DAILY SC 07/28/24 10:00 07/28/24 09:43 Famotidine (Pepcid Tablet) 20 mg BID PO 07/28/24 10:00 07/28/24 09:43 Review of Systems Per H&P Vital Signs Vital Signs Date Time Temp Pulse Resp B/P (MAP) Pulse Ox O2 Delivery O2 Flow Rate FiO2 07/28/24 08:50 98.3 80 16 147/89 (108) 98 98.3 07/28/24 06:38 Nasal Cannula* 2 28 Physical Exam General Appearance: Alert, Oriented X3, Cooperative, No acute distress HEENT: Atraumatic, PERRLA, EOMI, Mucous membrane moist/pink Respiratory: Clear to auscultation, Normal air movement Cardiovascular: Regular rate, Normal S1, Normal S2, No murmurs, no chest wall tenderness Abdominal: Normal bowel sounds, Soft, No tenderness, No hepatospenomegaly, No masses Extremities: No clubbing, No cyanosis, No edema, Normal pulses, No tenderness/swelling Skin: No rashes, No breakdown, No significant lesion Neuro: Normal gait, Normal speech, Strength at 5/5 X4 ext, Normal tone, Sensation intact, Cranial nerves 3-12 NL, Reflexes 2+ Psych/Mental Status: Mental status NL, Mood NL Labs/Diagnostic Data Labs Test 07/28/24 09:36 07/28/24 05:58 07/27/24 17:30 07/27/24 17:28 Range/Units POC Glucose 300 H 70-106 mg/dl White Blood Count 7.2 4.4-10.8 10^3/uL Red Blood Count 4.30 4.0-5.20 10^6/uL Hemoglobin 11.6 L 12.2-16.2 g/dL Hematocrit 35.4 #L 36.0-46.0 % Mean Corpuscular Volume 82.3 80.0-100.0 fL Mean Corpuscular Hemoglobin 26.9 L 28.0-32.0 pg Mean Corpuscular Hemoglobin Concent 32.7 32.0-36.0 g/dL Red Cell Distribution Width 14.1 11.8-14.3 % Platelet Count 284 140-450 10^3/uL Mean Platelet Volume 7.6 6.9-10.8 fL Neutrophils (%) (Auto) 49.6 37.0-80.0 % Lymphocytes (%) (Auto) 34.3 10.0-50.0 % Monocytes (%) (Auto) 11.9 0.0-12.0 % Eosinophils (%) (Auto) 3.4 0.0-7.0 % Basophils (%) (Auto) 0.8 0.0-2.0 % Neutrophils # (Auto) 3.6 1.6-8.6 10 ^3/uL Lymphocytes # (Auto) 2.5 0.4-5.4 10 ^3/uL Monocytes # (Auto) 0.9 0-1.3 10 ^3/uL Eosinophils # (Auto) 0.2 0-0.8 10 ^3/uL Basophils # (Auto) 0.1 0-0.2 10 ^3/uL Nucleated Red Blood Cells 0.0 % Sodium Level 141 136-145 mmol/L Potassium Level 4.0 3.5-5.1 mmol/L Chloride Level 110 H 98-107 mmol/L Carbon Dioxide Level 22 20-31 mmol/L Anion Gap 9 5-15 Blood Urea Nitrogen 15 9-23 mg/dL Creatinine 1.04 H 0.550-1.02 mg/dL Glomerular Filtration Rate Calc 56 >90 mL/min BUN/Creatinine Ratio 14.4 10.0-20.0 Serum Glucose 270 H 74-106 mg/dL Hemoglobin A1c > 14.0 H <5.7 % A1C Calcium Level 8.4 L 8.7-10.4 mg/dL Troponin I High Sensitivity 6 </=34 ng/L Beta-Hydroxybutyric Acid > 4.500 H < 0.4 mmol/L Thyroid Stimulating Hormone (TSH) 0.84 0.55-4.78 uIU/mL Free Thyroxine (T4) Calculated 1.17 0.89-1.76 ng/dL Blood Gas Specimen Type Arterial Blood Gas Sample Site Right radial Blood Gas Patient Temperature 37.0 Arterial Blood Date Drawn [id number] Arterial Blood pH 7.352 7.350-7.450 Arterial Blood Partial Pressure CO2 28.0 L 32.0-45.0 mmHg Arterial Blood Partial Pressure O2 71.3 L 83.0-108.0 mmHg Arterial Blood HCO3 15.2 L 21.0-28.0 mmol/L Arterial Blood Oxygen Saturation 93.1 L 94.0-98.0 % Arterial Blood Base Excess -8.9 L -2.0-3.0 mmol/L Arterial Blood Oxyhemoglobin 92.1 L 94.0-98.0 % Arterial Blood Carboxyhemoglobin 1.1 0.5-1.5 % Arterial Blood Methemoglobin 0.0 0.0-1.5 % Christian Test Yes Blood Gas Total Hemoglobin 13.30 12.0-16.0 g/dL Blood Gas Modality Room air FiO2 % 21.0 Test 07/27/24 17:07 Range/Units Urine Color Colorless Yellow Urine Clarity Clear Clear Urine pH 5.5 5.0-9.0 Urine Specific [place] 1.016 1.001-1.035 Urine Protein Negative Negative Urine Ketones 2+ H Negative Urine Blood Negative Negative /uL Urine Nitrite 2+ H Negative Urine Bilirubin Negative Negative Urine Urobilinogen Normal Negative mg/dL Urine Leukocyte Esterase Negative Negative /uL Urine RBC <1 0 - 4 /hpf Urine Microscopic WBC < 1 0-5 /HPF Urine Squamous Epithelial Cells Few <5 /hpf Urine Bacteria None seen None Seen /hpf Urine Mucus Few None Seen Urine Glucose 4+ H Normal mg/dL Assessment Uncontrolled diabetes type 2 with hyperglycemia DKA Hypertension Dyslipidemia Diabetic neuropathy History of palpitation Medication nonadherence * EKGs shows, normal sinus rhythm with no significant ST or T wave changes * Serial trop I am BNP is within normal limits Plan/Recommendation (Case discussed with Dr. Perkins) * Atorvastatin 40 mg daily * In the setting of normal EKG, trop I, tachycardia/palpitation was possibly due to hyperglycemia/low BP * We sign of the patient, if patient had recurrent episodes of palpitation, she may follow up with Cardiology on outpatient basis * Keep K above 4, and Mag above 2 * Rest of plan, per primary team Thank you for allowing us to participate in this patient's care. Please call if you have any questions or concerns. Plan discussed with: Patient, Other (RN) NYHA Physical activity limitations: NA Date of Service: July 28, 2024 Billing Provider: EROS PERKINS MD Cardiology Common Codes: [id number] INP/OBS CARE (High) EROS PERKINS MD 07/28/24 1845: Family History: FH: cancer G8 MOTHER G8 FATHER Allergies: Coded Allergies: Pseudoephedrine (Verified Adverse Reaction, Intermediate, PALPITATIONS, 02/09/23) Home Meds Active Scripts Insulin Glargine (Lantus) 100 Unit/Ml Inj, 15 UNITS SC BID for 30 Days, #30 INJ Prov:YNES PAYNE MD 02/14/23 Reported Medications Insulin Detemir (Levemir) Inj, 25 UNIT SC BID 07/28/24 Ezetimibe (Ezetimibe) 10 Mg Tab, 1 TAB PO DAILY 07/28/24 Sertraline HCl (Sertraline HCl) 50 Mg Tab, 1 TAB PO DAILY 07/28/24 Semaglutide (Rybelsus) 7 Mg Tab, 1 TAB PO DAILY 07/28/24 Metformin Hydrochloride (Metformin Hcl) 1,000 Mg Tab, 1 TAB PO BID for DIABETES 08/30/20 Plan/Recommendation pt seen with cv team pt sees me in clinc moderate cad on cath 2020 normal lvef in past pt has uncontroleld DM and not getting meds and missed x 1 month a1c 14 needs to see endocrine on DC Plan discussed with: Patient WENDY JEAN RESDIENT July 28, 2024 11:47 EROS PERKINS MD July 28, 2024 18:45
--- NOTE | 2024-07-28 11:48 | ECG ---
[facility] Test Date: 2024-07-28 Test Time: 11:47:17 Pat Name: GEOVANI ORTEGA Department: Room: [facility] Gender: F Design Chief: RAIN : 1950 Requested By: WENDY JEAN Order Number: [id number] Reading MD: Kendrick Ballard Measurements Intervals [place] Rate: 85 P: 5 DE: 165 QRS: -35 QRSD: 91 T: 3 QT: 427 QTc: 508 Interpretive Statements Sinus rhythm Anterior infarct, old Prolonged QT interval Electronically Signed On 07-30-2024 22:52:10 PDT by Kendrick Ballard Please click the below link to view image of tracing.
[2024-07-28] MEDS: ATORVASTATIN 20 MG TAB PO ONE (12:24)
[2024-07-28] MEDS: hydrALAZINE HCL 20 MG/ML VL IV PRN (12:43)
[2024-07-28] MEDS ORDERED: DEXTROSE (50%) 50ML SYRG IV PRN (13:15)
[2024-07-28] MEDS: InsuLIN REG 1unit/0.01ml Soln (100units/ml) SC SCH ×2 (17:01→21:40)
[2024-07-28] MEDS: ACCU-CHEK COMFORT CURVE STRIP VI SCH (17:01)
--- NOTE | 2024-07-28 20:53 | ECG ---
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
[2024-07-28] MEDS: MELATONIN 5 MG TAB PO SCH (21:38)
[2024-07-28] MEDS: ATORVASTATIN 20 MG TAB PO SCH (21:38)
[2024-07-28] MEDS: LOSARTAN POTASSIUM 25 MG TAB PO SCH (21:39)
[2024-07-29 00:22] LABS: Rapid Influenza A Negative (Negative); Rapid Influenza B Negative (Negative)
[2024-07-29 01:00] VITALS: BP 125/74; PULSE 92; RESP 18; TEMP 97.8; O2SAT 95
[2024-07-29 05:00] VITALS: BP 100/59; PULSE 101; RESP 18; TEMP 97.7; O2SAT 94
[2024-07-29 08:00] VITALS: PULSE 73
[2024-07-29 08:10] VITALS: PULSE 67; RESP 20; O2SAT 96
[2024-07-29 09:13] LABS: Sodium 140 mmol/L (136-145)
[2024-07-29 09:14] LABS: Anion Gap 8 (5-15); Calcium 9.6 mg/dL (8.7-10.4); Carbon Dioxide 24 mmol/L (20-31)
[2024-07-29 09:20] LABS: BUN/Creatinine Ratio 12.8 (10.0-20.0); Blood Urea Nitrogen 14 mg/dL (9-23); Chloride 108 mmol/L (98-107); Glucose 278 mg/dL (74-106); Potassium 3.5 mmol/L (3.5-5.1)
[2024-07-29] MEDS: SERTRALINE HCL 50 MG TAB PO SCH (09:45)
[2024-07-29] MEDS ORDERED: LOS25T PO (10:57)
--- NOTE | 2024-07-29 10:58 | DVHDS2 ---
Discharge Summary Date of Admission July 27, 2024 at 23:11 Date of Discharge: July 29, 2024 Labs/Diagnostic Data: Laboratory Results Test 07/29/24 09:36 07/29/24 08:44 07/28/24 23:45 07/28/24 05:58 POC Glucose 341 mg/dl (70-106) Sodium Level 140 mmol/L (136-145) Potassium Level 3.5 mmol/L (3.5-5.1) Chloride Level 108 mmol/L (98-107) Carbon Dioxide Level 24 mmol/L (20-31) Anion Gap 8 (5-15) Blood Urea Nitrogen 14 mg/dL (9-23) Creatinine 1.09 mg/dL (0.550-1.02) Glomerular Filtration Rate Calc 53 mL/min (>90) BUN/Creatinine Ratio 12.8 (10.0-20.0) Serum Glucose 278 mg/dL (74-106) Calcium Level 9.6 mg/dL (8.7-10.4) Influenza Type A Antigen Negative (Negative) Influenza Type B Antigen Negative (Negative) White Blood Count 7.2 10^3/uL (4.4-10.8) Red Blood Count 4.30 10^6/uL (4.0-5.20) Hemoglobin 11.6 g/dL (12.2-16.2) Hematocrit 35.4 % (36.0-46.0) Mean Corpuscular Volume 82.3 fL (80.0-100.0) Mean Corpuscular Hemoglobin 26.9 pg (28.0-32.0) Mean Corpuscular Hemoglobin Concent 32.7 g/dL (32.0-36.0) Red Cell Distribution Width 14.1 % (11.8-14.3) Platelet Count 284 10^3/uL (140-450) Mean Platelet Volume 7.6 fL (6.9-10.8) Neutrophils (%) (Auto) 49.6 % (37.0-80.0) Lymphocytes (%) (Auto) 34.3 % (10.0-50.0) Monocytes (%) (Auto) 11.9 % (0.0-12.0) Eosinophils (%) (Auto) 3.4 % (0.0-7.0) Basophils (%) (Auto) 0.8 % (0.0-2.0) Neutrophils # (Auto) 3.6 10 ^3/uL (1.6-8.6) Lymphocytes # (Auto) 2.5 10 ^3/uL (0.4-5.4) Monocytes # (Auto) 0.9 10 ^3/uL (0-1.3) Eosinophils # (Auto) 0.2 10 ^3/uL (0-0.8) Basophils # (Auto) 0.1 10 ^3/uL (0-0.2) Nucleated Red Blood Cells 0.0 % Hemoglobin A1c > 14.0 % A1C (<5.7) Troponin I High Sensitivity 6 ng/L (</=34) Test 07/27/24 17:30 07/27/24 17:28 07/27/24 17:07 Beta-Hydroxybutyric Acid > 4.500 mmol/L (< 0.4) Thyroid Stimulating Hormone (TSH) 0.84 uIU/mL (0.55-4.78) Free Thyroxine (T4) Calculated 1.17 ng/dL (0.89-1.76) Blood Gas Specimen Type Arterial Blood Gas Sample Site Right radial Blood Gas Patient Temperature 37.0 Arterial Blood Date Drawn [id number] Arterial Blood pH 7.352 (7.350-7.450) Arterial Blood Partial Pressure CO2 28.0 mmHg (32.0-45.0) Arterial Blood Partial Pressure O2 71.3 mmHg (83.0-108.0) Arterial Blood HCO3 15.2 mmol/L (21.0-28.0) Arterial Blood Oxygen Saturation 93.1 % (94.0-98.0) Arterial Blood Base Excess -8.9 mmol/L (-2.0-3.0) Arterial Blood Oxyhemoglobin 92.1 % (94.0-98.0) Arterial Blood Carboxyhemoglobin 1.1 % (0.5-1.5) Arterial Blood Methemoglobin 0.0 % (0.0-1.5) Christian Test Yes Blood Gas Total Hemoglobin 13.30 g/dL (12.0-16.0) Blood Gas Modality Room air FiO2 % 21.0 Urine Color Colorless (Yellow) Urine Clarity Clear (Clear) Urine pH 5.5 (5.0-9.0) Urine Specific [place] 1.016 (1.001-1.035) Urine Protein Negative (Negative) Urine Ketones 2+ (Negative) Urine Blood Negative /uL (Negative) Urine Nitrite 2+ (Negative) Urine Bilirubin Negative (Negative) Urine Urobilinogen Normal mg/dL (Negative) Urine Leukocyte Esterase Negative /uL (Negative) Urine RBC <1 /hpf (0 - 4) Urine Microscopic WBC < 1 /HPF (0-5) Urine Squamous Epithelial Cells Few /hpf (<5) Urine Bacteria None seen /hpf (None Seen) Urine Mucus Few (None Seen) Urine Glucose 4+ mg/dL (Normal) Other Laboratory Tests 07/29/24 08:44 07/28/24 05:58 Brief Hx & Hospital Course: Mrs. Adrienne Scott 74-year-old female with a history of DM2, HLD, appendectomy, hysterectomy, tonsillectomy who presents with a chief complaint of generalized weakness, bilateral upper extremity tingling for the past three days. The patient denies any vomiting or diarrhea. Patient reports she was having dizziness, palpitations and an episode of "blacking out" for a couple of seconds without any syncopal episode. Patient reports she has not been taking her antidiabetics x 2 days due to not feeling well and having a poor appetite. Patient denies chest pain, dyspnea, blurry vision, nausea, vomiting, fevers, chills. Patient admitted for further evaluation. She is admitted and received supportive care and treatment including IV hydration and insulin for her high blood sugars. Patient counseled and educated regarding blood sugar control at home and to adjust her insulin. While in the hospital she is seen by Cardiology had echocardiogram did not reveal any significant acute pathology. Overall she is feeling better. Her sugars have controlled. Therefore it is felt she could be safely discharged home. I have talked with the patient regarding her hospital diagnosis and insulin dosage adjustments at home, checking blood pressure at home and close follow up with the PCP. Patient is also prescribed blood pressure medication. Otherwise she is being discharged home. Patient verbalized understanding over hospital diagnosis, treatment she received, discharge medications, discharge instructions and agree with follow-up plan of care as outlined Operations or Procedures APPROVED REPORT EXAM: Two-dimensional and M-mode echocardiogram with Doppler and color Doppler. Blood Pressure: 100/59 mmHg INDICATION dizziness, palpitaions, " blacking out" RISK FACTORS Obesity: Height: 4'10, Weight: 107 DIMENSIONS LVDd 3.9 (3.8-5.7cm) LA (2D) 2.8 (1.9-4.0cm) Aortic Root 3.5 (2.0- 3.7cm) LVDs 2.8 (2.5-4.0cm) LA (MM) (1.9-4.0cm) Aortic Cusp Exc 1.7 (1.5- 2.0cm) EF (%) 55.0 (55-70%) Rt. Atrium 3.7 (1.9-4.0cm) Asc. Aorta cm IVSd 0.9 (0.7-1.1cm) RV (D) 3.3 (1.8-2.4cm) PWd 0.9 (0.7-1.1cm) Mitral Valve Mitral Mitral Stenosis E wave 0.48m/s MV Mean GR. mmHg A wave 1.10m/s MV Peak GR. mmHg E/A ratio 0.4 2D MVA cm2 DECEL Time 128ms PRESS 1/2 Time ms Aortic Valve Aortic Valve Aortic Stenosis V1 0.81m/s AO Mean GR. mmHg V2 0.93m/s AO Peak GR. 3mmHg LVOT Diameter 2.0 (1.8-2.4cm) Doppler EZEKIEL 2.73cm2 Other Information Technically limited study due to patient position. Conclusion lvef 65% normal rv function normal atria no severe valve abnormalities noted SIGNED BY: EROS PERKINS MD SIGNED DATE/TIME: 07/29/24 1421 Condition at Discharge: Stable Final Diagnosis/Problems List Diabetes mellitus type 2 poorly controlled, hypertension Discharge Disposition: Home Discharge Instruct/Medications Diet: Consistent carbohydrate, Cardiac 2g Na,low cholest Activity: No Restrictions, As Tolerated Follow Up/Referral: Your primary care doctor in two weeks follow up your blood pressure and blood sugars and to adjust your medications Medications: Take the blood pressure medication as prescribed and other home medications per discharge med reconciliation list. New Medications: Losartan Potassium (Losartan Potassium) 25 Mg Tab 25 MG PO BID, #90 TAB Misc. Devices (Blood Pressure Monitor) Monitor Kit EA XX DAILY, #1 Continued Medications: Ezetimibe (Ezetimibe) 10 Mg Tab 1 TAB PO DAILY Insulin Detemir (Levemir) Inj 25 UNIT SC BID Metformin Hydrochloride (Metformin Hcl) 1,000 Mg Tab 1 TAB PO BID for DIABETES Semaglutide (Rybelsus) 7 Mg Tab 1 TAB PO DAILY Sertraline HCl (Sertraline HCl) 50 Mg Tab 1 TAB PO DAILY Discontinued Medications: Insulin Glargine (Lantus) 100 Unit/Ml Inj 15 UNITS SC BID for 30 Days, #30 INJ Discharge Statement: "Patient was advised to return to the ER or call 911 if any headaches, dizziness, shortness of breath, chest pain, abdominal pain, bleeding, fevers, or worsening of medical condition. Patient was counseled about treatment plan, medications, possible side effects, patientverbalized understanding. All questions were answered to the best of my ability. This discharge took greater then 30 minutes in planning, reviewing documentation, counseling the patient, and discussing with other team members." ASSESSMENT ASSESSMENT Assessment Diabetes mellitus type 2 poorly controlled, hypertension FERNANDO NAJERA MD July 29, 2024 10:58
[2024-07-29] MEDS ORDERED: BLOO1KIT54 XX (10:59)
[2024-07-29 11:51] VITALS: BP 110/62
[2024-07-29 13:00] VITALS: BP 123/80; PULSE 88; RESP 20; TEMP 98; O2SAT 96
--- NOTE | 2024-07-29 14:21 | DVHSR ---
APPROVED REPORT EXAM: Two-dimensional and M-mode echocardiogram with Doppler and color Doppler. Blood Pressure: 100/59 mmHg INDICATION dizziness, palpitaions, " blacking out" RISK FACTORS Obesity: Height: 4'10, Weight: 107 DIMENSIONS LVDd3.9 (3.8-5.7cm)LA (2D)2.8 (1.9-4.0cm)Aortic Root3.5 (2.0-3.7cm) LVDs2.8 (2.5-4.0cm)LA (MM) (1.9-4.0cm)Aortic Cusp Exc1.7 (1.5-2.0cm) EF (%) 55.0 (55-70%)Rt. Atrium3.7 (1.9-4.0cm)Asc. Aorta cm IVSd0.9 (0.7-1.1cm)RV (D)3.3 (1.8-2.4cm) PWd0.9 (0.7-1.1cm) Mitral Valve MitralMitral Stenosis E wave0.48m/sMV Mean GR.mmHg A wave1.10m/sMV Peak GR.mmHg E/A ratio0.42D MVAcm2 DECEL [id number] 1/2 [place] Aortic Valve Aortic ValveAortic Stenosis V10.81m/Adi Mean GR.mmHg V20.93m/Adi Peak GR.3mmHg LVOT Diameter2.0 (1.8-2.4cm)Doppler AVA2.73cm2 Other Information Technically limited study due to patient position. Conclusion lvef 65% normal rv function normal atria no severe valve abnormalities noted
--- NOTE | 2024-07-29 14:49 | DVHPN2 ---
Progress Note Date Seen: July 29, 2024 Medical Necessity Reason Pt with a Central, PICC or Fol: No Subjective Patient reports: Feels better Objective vital signs Vital Sign Date Time Temp Pulse Resp B/P (MAP) Pulse Ox O2 Delivery O2 Flow Rate FiO2 07/29/24 13:00 98.0 88 20 123/80 (94) 96 98.0 07/29/24 08:10 Room Air* 0 21 Total Intake and Output 07/28/24 07/28/24 07/29/24 15:00 23:00 07:00 Intake Total 600 ml 525 ml Output Total 400 ml Balance 200 ml 525 ml medications Current Medications Medications Dose Ordered Sig/Barbara Route Start Time Stop Time Status Last Admin Dose Admin Acetaminophen 650 mg Q6HPRN PRN PO 07/27/24 21:15 07/28/24 21:43 650 MG Ondansetron HCl 4 mg Q6HP PRN IV 07/27/24 21:15 Hydralazine HCl 10 mg Q6HPRN PRN IV 07/27/24 23:15 07/28/24 12:43 10 MG Enoxaparin Sodium 40 mg DAILY SC 07/28/24 10:00 07/29/24 09:44 40 MG Famotidine 20 mg BID PO 07/28/24 10:00 07/29/24 09:45 20 MG Atorvastatin Calcium 40 mg HS PO 07/28/24 22:00 07/28/24 21:38 40 MG Diagnostic Test (Pha) 1 strip ACHS 07/28/24 17:00 07/29/24 11:36 1 STRIP Insulin Human Regular HS SC 07/28/24 22:00 07/28/24 21:40 4 UNITS Insulin Human Regular AC SC 07/28/24 17:00 07/29/24 11:41 12 UNITS Dextrose 50 ml UD PRN IV 07/28/24 13:15 Insulin Glargine 20 units BID SC 07/28/24 22:00 07/29/24 09:44 20 UNITS Losartan Potassium 25 mg BID PO 07/28/24 22:00 07/29/24 09:46 25 MG Sertraline HCl 25 mg DAILY PO 07/29/24 10:00 07/29/24 09:45 25 MG Melatonin 10 mg HS PO 07/28/24 22:00 07/28/24 21:38 10 MG Examination: GENERAL:Abnormal, HEENT:Abnormal, LUNGS:Abnormal, CVS:Abnormal, ABDOMEN:Abnormal laboratory and microbiology Laboratory Tests 07/29/24 08:44 07/28/24 05:58 Test 07/29/24 08:44 Range/Units Serum Glucose 278 H 74-106 mg/dL Problem List/Assessment/Plan Problem List/Assessment/Plan weakness hyperglycemia cad htn cont asa, statin outpt fu with endocrine and pcp dc home today Plan discussed with: Patient Date of Service: July 29, 2024 Billing Provider: EROS PERKINS MD Common Visit Codes: NOT BILLABLE EROS PERKINS MD July 29, 2024 14:49
== END 2024-07-29 14:00 | disposition home health service (06) | DRG 639 ==
LOC: EDBD 16:32 → ER 16:32 → OVERFLOW 23:11 → TELE-WESTW 07-28 06:35
PROVIDERS: ADMIT Nurse Practitioner Family; ATTEND Nurse Practitioner Family
DX: E11.00 Type 2 diabetes mellitus with hyperosmolarity without nonketotic hyperglycemic-hyperosmolar coma (NKHHC) (principal); E11.40 Type 2 diabetes mellitus with diabetic neuropathy, unspecified; I10 Essential (primary) hypertension; E78.5 Hyperlipidemia, unspecified; I25.10 Atherosclerotic heart disease of native coronary artery without angina pectoris; Z79.4 Long term (current) use of insulin; Z79.899 Other long term (current) drug therapy; Z79.84 Long term (current) use of oral hypoglycemic drugs; Z88.8 Allergy status to other drugs, medicaments and biological substances; Z90.710 Acquired absence of both cervix and uterus; Z90.49 Acquired absence of other specified parts of digestive tract; Z91.148 Patient's other noncompliance with medication regimen for other reason
CPT/HCPCS: 36415; 36600; 70450; 71045; 80048; 81001; 82010; 82805; 82962; 83036; 84439; 84443; 84484; 85025; 87804; 93005; 93306; 96360; 96372; 99291; G0378; J1815

== ENCOUNTER 2024-09-27 21:25 | Inpatient (IN) | payer OTHER ==
[~2024-09-27] VITALS: Ht 147.3 cm; Wt 48.9 kg
[~2024-09-27 21:25] MED LIST changes: +BLOO1KIT54 XX; -BLOO1KIT60 XX; +EZET-10 PO; -GLIP5TAB21 PO; -INSLANTI SC; -INSU-567 XX; +LEVEMIR SC; +LOS25T PO; +SEMA7TAB2 PO; +SERT-289 PO
--- NOTE | 2024-09-27 21:34 | ECG ---
[facility] Test Date: 2024-09-27 Test Time: 21:27:09 Pat Name: GEOVANI ORTEGA Department: ED Room: [address] [place] [address] Gender: F Support Staff: ROLANDA : 1950 Requested By: OZZIE FERNANDES Order Number: [id number] Reading MD: Kendrick Ballard Measurements Intervals [place] Rate: 104 P: 22 [place]: 169 QRS: -55 QRSD: 87 T: 76 QT: 337 QTc: 444 Interpretive Statements Sinus tachycardia Atrial premature complexes Left anterior fascicular block Anteroseptal infarct, age indeterminate ST elevation, consider inferior injury Baseline wander in lead(s) V4 Electronically Signed On 09-28-2024 11:20:50 PDT by Kendrick Ballard Please click the below link to view image of tracing.
--- NOTE | 2024-09-27 21:40 | ED.PDOC ---
History of Present Illness HPI Comments This is a 74 year-old female BIB EMS, with a PMHX of DM, presents to the ED for general weakness onset for the past X4 days. Patient reports feeling similar to previous [facility] visit on 02/09/23, where patient was discharged with DKA. Per EMS, patients blood sugar was 555 on scene. Patient takes Metformin and Trulicity at home as prescribed. Patient has no further complaints and otherwise denies chest pain, palpitations, sweats, chills, fever, or N/V. Chief Complaint: Hyperglycemia Time Seen by MD: 21:30 Primary Care Provider: UNKNOWN Reviewed Notes: Medications, Allergies Allergies: Coded Allergies: Pseudoephedrine (Verified Adverse Reaction, Intermediate, PALPITATIONS, 02/09/23) Home Meds Active Scripts Misc. Devices (Blood Pressure Monitor) Monitor Kit, EA XX DAILY, #1 Prov:FERNANDO NAJERA MD 07/29/24 Losartan Potassium (Losartan Potassium) 25 Mg Tab, 25 MG PO BID, #90 TAB Prov:FERNANDO NAJERA MD 07/29/24 Reported Medications Insulin Detemir (Levemir) Inj, 25 UNIT SC BID 07/28/24 Ezetimibe (Ezetimibe) 10 Mg Tab, 1 TAB PO DAILY 07/28/24 Sertraline HCl (Sertraline HCl) 50 Mg Tab, 1 TAB PO DAILY 07/28/24 Semaglutide (Rybelsus) 7 Mg Tab, 1 TAB PO DAILY 07/28/24 Metformin Hydrochloride (Metformin Hcl) 1,000 Mg Tab, 1 TAB PO BID for DIABETES 08/30/20 Information Source: Patient Mode of Arrival: EMS Severity: Moderate Timing: Days (4) Duration: Since onset Prehospital treatment: Accucheck (555) Associated signs and symptoms general weakness Past Medical History PAST MEDICAL HISTORY: DM, High Lipids Surgical History: Appendectomy, Hysterectomy, Tonsillectomy GEOGRAPHIC ANALYST History: Denies all GEOGRAPHIC ANALYST Hx Family History Family History: Family hx of Cancer Social History Smoker: Non-Smoker Alcohol: Occasionally Drugs: Denies Drug Use Lives In: Home Constitutional: reports: weakness; denies: chills, diaphoresis, fatigue, fever, malaise, sweats, others EENTM: denies: blurred vision, double vision, ear bleeding, ear discharge, ear drainage, ear pain, ear ringing, eye pain, eye redness, hearing loss, mouth pain, mouth swelling, nasal discharge, nose bleeding, nose congestion, nose pain, photophobia, tearing, throat pain, throat swelling, voice changes, others Respiratory: denies: cough, hemoptysis, orthopnea, SOB at rest, shortness of breath, SOB with excertion, stridor, wheezing, others Cardiovascular: denies: chest pain, dizzy spells, diaphoresis, Dyspnea on exertion, edema, irregular heart beat, left arm pain, lightheadedness, palpitations, PND, syncope, others Gastrointestinal: denies: abdomen distended, abdominal pain, blood streaked bowels, constipated, diarrhea, dysphagia, difficulty swallowing, hematemesis, melena, nausea, poor appetite, poor fluid intake, rectal bleeding, rectal pain, vomiting, others Genitourinary: denies: abnormal vagina bleeding, burning, dyspareunia, dysuria, flank pain, frequency, hematuria, incontinence, pain, , vagina discharge, urgency, others Neurological: denies: dizziness, fainting, headache, left sided numbness, left sided weakness, numbness, paresthesia, pre-existing deficit, right sided numbness, right sided weakness, seizure, speech problems, tingling, tremors, weakness, others Musculoskeletal: denies: back pain, gout, joint pain, joint swelling, muscle pain, muscle stiffness, neck pain, others Integumetry: denies: bruises, change in color, change in hair/nails, dryness, laceration, lesions, lumps, rash, wounds, others Allergic/Immunocompromised: denies: Difficulty Healing, Frequent Infections, Hives, Itching, others Hematologic/Lymphatic: denies: anemia, blood clots, easy bleeding, easy bruising, swollen glands, others Endocrine: denies: excessive hunger, excessive sweating, excessive thirst, excessive urination, flushing, intolerance to cold, intolerance to heat, unexplained weight gain, unexplained weight loss, others Psychiatric: denies: anxiety, bipolar disorder, depression, hopeless, panic disorder, schizophrenia, sleepless, suicidal, others All Other Systems: Reviewed and Negative Physical Exam General Appearance: Mild Distress, Normal, Other (DKA ) HEENT: Normal ENT Inspection, Pharynx Normal, TMs Normal Neck: Full Range of Motion, Non-Tender, Normal, Normal Inspection Respiratory: Chest Non-Tender, Lungs Clear, No Accessory Muscle Use, Other (Tachypnic) Cardiovascular: No Edema, No JVD, No Murmur, No Gallop, Normal Peripheral Pulses, Regular Rate/Rhythm Breast Exam: Deferred Gastrointestinal: No Organomegaly, Non Tender, No Pulsatile Mass, Normal Bowel Sounds, Soft Genitalia: Deferred Pelvic: Deferred Rectal: Deferred Extremities: No calf tenderness, Normal capillary refill, Normal inspection, Normal range of motion, Non-tender, No pedal edema Musculoskeletal : Apperance: Normal Neurologic: Alert, grey roll man II-XII nml as Tested, No Motor Deficits, Normal Affect, Normal Mood, No Sensory Deficits Cerebellar Function: Normal Reflexes: Normal Skin: Dry, Normal Color, Warm Lymphatic: No Adenopathy Was a procedure done? Was a procedure done?: No EKG EKG : Pulse Rate (adult): 104 [place]: Normal Cardiac Rhythm: ST ST: Ant, Infarct Comments Left Anterior Fascicular Block Differential Dx Considerations may include: Anxiety, Panic Attack, DKA, DM X-Ray, Labs, Meds, VS Vital Signs Date Time Temp Pulse Resp B/P (MAP) Pulse Ox O2 Delivery O2 Flow Rate FiO2 09/27/24 21:50 104 09/27/24 21:45 98.4 104 14 168/70 (102) 96 98.4 09/27/24 21:45 104 14 96 Room Air* 0 21 09/27/24 21:30 98.6 103 30 136/83 97 98.6 09/27/24 21:27 104 Lab Test 09/27/24 21:49 09/27/24 21:44 Range/Units POC Glucose 481 *H 70-106 mg/dl White Blood Count 12.1 H 4.4-10.8 10^3/uL Red Blood Count 4.43 4.0-5.20 10^6/uL Hemoglobin 12.0 L 12.2-16.2 g/dL Hematocrit 36.8 36.0-46.0 % Mean Corpuscular Volume 83.0 80.0-100.0 fL Mean Corpuscular Hemoglobin 27.0 L 28.0-32.0 pg Mean Corpuscular Hemoglobin Concent 32.5 32.0-36.0 g/dL Red Cell Distribution Width 14.6 H 11.8-14.3 % Platelet Count 286 140-450 10^3/uL Mean Platelet Volume 8.1 6.9-10.8 fL Neutrophils (%) (Auto) 85.5 H 37.0-80.0 % Lymphocytes (%) (Auto) 6.3 L 10.0-50.0 % Monocytes (%) (Auto) 8.0 0.0-12.0 % Eosinophils (%) (Auto) 0.1 0.0-7.0 % Basophils (%) (Auto) 0.1 0.0-2.0 % Neutrophils # (Auto) 10.3 H 1.6-8.6 10 ^3/uL Lymphocytes # (Auto) 0.8 0.4-5.4 10 ^3/uL Monocytes # (Auto) 1.0 0-1.3 10 ^3/uL Eosinophils # (Auto) 0 0-0.8 10 ^3/uL Basophils # (Auto) 0 0-0.2 10 ^3/uL Nucleated Red Blood Cells 0.0 % Sodium Level 130 L 136-145 mmol/L Potassium Level 4.7 3.5-5.1 mmol/L Chloride Level 96 L 98-107 mmol/L Carbon Dioxide Level 14 L 20-31 mmol/L Anion Gap 20 H 5-15 Blood Urea Nitrogen 41 H 9-23 mg/dL Creatinine 1.54 H 0.550-1.02 mg/dL Glomerular Filtration Rate Calc 35 >90 mL/min BUN/Creatinine Ratio 26.6 H 10.0-20.0 Serum Glucose 514 *H 74-106 mg/dL Calcium Level 8.9 8.7-10.4 mg/dL Total Bilirubin 0.3 0.2-1.0 mg/dL Aspartate Amino Transferase (AST) 12 L 13-40 U/L Alanine Aminotransferase (ALT) Pending Alkaline Phosphatase 153 H 46-116 U/L Total Protein 6.5 5.7-8.2 g/dL Albumin 4.0 3.2-4.8 g/dL Current Medications Medications (Trade) Dose Ordered Sig/Barbara Route Start Time Stop Time Status Last Admin Sodium Chloride 1,000 ml @ 1,000 mls/hr Q1H ONCE IV 09/27/24 21:45 09/27/24 22:44 09/27/24 22:05 X-Ray, Labs, Meds, VS Comment Imaging: X-rays and CT scans were reviewed and interpreted by this provider, imaging shows no fractures and no pathological disease. Pending radiology review. Laboratory: Labs reviewed and interpreted by this provider. Chemistry shows signs of DKA although patient is anion gap is only 20 Patient will be started with IV insulin and 2 L bolus to see if DKA can be corrected Blood sugars and VBG will be rechecked within 1-2 hours. Patient has prior medical visits reviewed. Med reconciliation performed Vital signs reviewed Time of 1ST Reevaluation: 22:03 Reevaluation 1ST: Unchanged Patient Education/Counseling: Diagnosis, Treatment Family Education/Counseling: No Family Present SEPSIS Sepsis Screen Date sepsis recognized/suspect: Sep 27, 2024 Time Sepsis recognized/suspect: 2133 Recent Procedure: No On Antibiotic Therapy: No Respiratory Rate >20: Yes Heart Rate >90: Yes Temp<36 C (96.8 F) or >38.3 C: No SBP <90 or MAP <65 mmHG: No New Acute Mental Status Change: No Is the patient on CPAP, BIPAP,: No Physician Orders Comprehensive Metabolic Panel (09/27/24 21:37) Chest Portable (09/27/24 21:37) Urinalysis (09/27/24 21:37) Sodium Chloride 0.9% (09/27/24 21:45) Insulin R (Human) (Insulin R) (09/27/24 22:45) Vital Signs Date Time Temp Pulse Resp B/P (MAP) Pulse Ox O2 Delivery O2 Flow Rate FiO2 09/27/24 21:50 104 09/27/24 21:45 98.4 104 14 168/70 (102) 96 98.4 09/27/24 21:45 104 14 96 Room Air* 0 21 09/27/24 21:30 98.6 103 30 136/83 97 98.6 09/27/24 21:27 104 Laboratory Tests Test 09/27/24 21:44 White Blood Count 12.1 10^3/uL (4.4-10.8) H Medications Medications Dose Ordered Sig/Barbara Route Start Time Stop Time Status Last Admin Dose Admin Sodium Chloride 1,000 ml @ 1,000 mls/hr Q1H ONCE IV 09/27/24 21:45 09/27/24 22:44 09/27/24 22:05 Departure 1 Departure Time of Disposition: 22:43 Impression: Primary Impression: Diabetic ketoacidosis Qualified Codes: E11.10 - Type 2 diabetes mellitus with ketoacidosis without coma Disposition: ADMITTED INPATIENT Condition: Stable Discharged With: Self Critical Care Note Critical Care Time?: No Stability Stability form required: No Heart Score Heart Score: Heart Score Response (Comments) Value History Slightly Suspicious 0 EKG Normal 0 Age >65 2 Risk Factors No known risk factors 0 Troponin N/A 0 Total 2 I personally scribed for ROLAND,CHRISTOPHER E BOARD MIXER TENDER (DVRUICH) on 09/27/24 at 21:40. Electronically submitted by Mamie Gaines (Directr). I personally scribed for ROLAND,CHRISTOPHER E BOARD MIXER TENDER (DVRUICH) on 09/27/24 at 21:47. Electronically submitted by Mamie Gaines (Directr). I personally scribed for ROLAND,CHRISTOPHER E BOARD MIXER TENDER (DVRUICH) on 09/27/24 at 21:48. Electronically submitted by Mamie Gaines (Directr). I personally scribed for ROLAND,CHRISTOPHER E BOARD MIXER TENDER (DVRUICH) on 09/27/24 at 21:50. Electronically submitted by Mamie Gaines (Directr). I personally scribed for ROLAND,CHRISTOPHER E BOARD MIXER TENDER (DVRUICH) on 09/27/24 at 21:53. Electronically submitted by Mamie Gaines (Directr). ROLAND,CHRISTOPHER E BOARD MIXER TENDER Sep 27, 2024 21:40
[2024-09-27 21:45] VITALS: PULSE 104; RESP 14; O2SAT 96
[2024-09-27] MEDS: SODIUM CHLORIDE 0.9% 1,000 ML IV ONE ×2 (22:05→23:00)
[2024-09-27 22:11] LABS: Hematocrit 36.8 % (36.0-46.0); Hemoglobin 12.0 g/dL (12.2-16.2); Mean Corpuscular Hemoglobin 27.0 pg (28.0-32.0); Mean Corpuscular Volume 83.0 fL (80.0-100.0); Nucleated Red Blood Cells % 0.0 %
--- NOTE | 2024-09-27 22:17 | DVH ---
EXAM: XY CHEST PORTABLE CLINICAL HISTORY: SOB TECHNIQUE: Single AP view of the chest WID: COMPARISON: XY CHEST PORTABLE on DOS: 07/27/24 FINDINGS: Lines and tubes: None Chest: The heart size and pulmonary vasculature is within normal limits. Calcified plaque projects over the aortic arch. No pleural effusion, pneumothorax, or consolidation. The osseous structures are grossly intact. IMPRESSION: No acute cardiopulmonary abnormality.
[2024-09-27 22:25] LABS: Albumin 4.0 g/dL (3.2-4.8); Anion Gap 20 (5-15); BUN/Creatinine Ratio 26.6 (10.0-20.0); Bilirubin, Total 0.3 mg/dL (0.2-1.0); Calcium 8.9 mg/dL (8.7-10.4); Potassium 4.7 mmol/L (3.5-5.1); Total Protein 6.5 g/dL (5.7-8.2)
[2024-09-27 22:26] LABS: Alkaline Phosphatase 153 U/L (46-116); Blood Urea Nitrogen 41 mg/dL (9-23); Carbon Dioxide 14 mmol/L (20-31); Chloride 96 mmol/L (98-107); Sodium 130 mmol/L (136-145)
[2024-09-27 22:27] LABS: Glucose 514 mg/dL (74-106)
[2024-09-27 22:39] LABS: Alanine Aminotransferase 14 U/L (7-40)
[2024-09-27] MEDS: InsuLIN REG 1unit/0.01ml Soln (100units/ml) IV ONE (22:48)
[2024-09-27] MEDS: cefTRIAXone 2GM/50ML D5W 50 ML IV ONE (23:29)
[2024-09-27] MEDS ORDERED: DEXTROSE (50%) 50ML SYRG IV PRN (23:30)
[2024-09-27] MEDS ORDERED: ONDANSETRON HCL 4 MG/2 ML VIAL IV PRN (23:30)
[2024-09-27 23:33] LABS: Base Excess -16.2 mmol/L (-2.0-3.0)
[2024-09-27 23:46] LABS: Magnesium 1.8 mg/dL (1.6-2.6)
[2024-09-27 23:46] LABS: Hematocrit 31.6 % (36.0-46.0); Hemoglobin 10.4 g/dL (12.2-16.2); Mean Corpuscular Hemoglobin 27.2 pg (28.0-32.0); Mean Corpuscular Volume 82.9 fL (80.0-100.0); Nucleated Red Blood Cells % 0.0 %
[2024-09-28 00:16] LABS: Chloride 106 mmol/L (98-107); Potassium 3.6 mmol/L (3.5-5.1)
[2024-09-28 00:17] LABS: Anion Gap 18 (5-15)
[2024-09-28 00:20] LABS: Calcium 7.7 mg/dL (8.7-10.4); Carbon Dioxide 11 mmol/L (20-31); Sodium 135 mmol/L (136-145)
[2024-09-28 00:22] LABS: BUN/Creatinine Ratio 27.1 (10.0-20.0)
[2024-09-28] MEDS: ACCU-CHEK COMFORT CURVE STRIP VI SCH ×3 (00:29→17:31)
[2024-09-28] MEDS: INSULIN DRIP 100 UNIT/100ML 100 ML IV SCH ×2 (00:33→02:00)
[2024-09-28 00:36] LABS: Blood Urea Nitrogen 35 mg/dL (9-23); Glucose 368 mg/dL (74-106)
[2024-09-28 00:52] LABS: Urine Protein, UAD TRACE (Negative)
[2024-09-28] MEDS ORDERED: INSULIN DRIP 100 UNIT/100ML 100 ML IV SCH (01:30)
--- NOTE | 2024-09-28 03:08 | DVHHP2 ---
Admitting Diagnosis: DKA History of Present Illness History Source: Patient Exam Limitations: No limitations HPI Mrs. Adrienne Scott is a 74 year-old female with a history of DM2, HLD, appendectomy, hysterectomy, tonsillectomy, HTN who presents with a chief complaint of general weakness onset for the past X4 days. Patient reports feeling similar to previous [facility] visit on 02/09/23, where patient was discharged with DKA. Patient reports she takes Metformin and Trulicity at home as prescribed. Patient has no further complaints and otherwise denies chest pain, palpitations, sweats, chills, fever, or N/V. Patient admitted for further evaluation and treatment. Home Meds Active Scripts Cefdinir (Cefdinir) 300 Mg Cap, 1 CAP PO BID for 14 Days, #28 CAP Prov:YNES PAYNE MD 09/30/24 [facility] – [place], [place]. Devices (Blood Pressure Monitor) Monitor Kit, EA XX DAILY, #1 Prov:FERNANDO NAJERA MD 07/29/24 Losartan Potassium (Losartan Potassium) 25 Mg Tab, 25 MG PO BID, #90 TAB Prov:FERNANDO NAJERA MD 07/29/24 Reported Medications Insulin Detemir (Levemir) Inj, 25 UNIT SC BID 07/28/24 Ezetimibe (Ezetimibe) 10 Mg Tab, 1 TAB PO DAILY 07/28/24 Sertraline HCl (Sertraline HCl) 50 Mg Tab, 1 TAB PO DAILY 07/28/24 Semaglutide (Rybelsus) 7 Mg Tab, 1 TAB PO DAILY 07/28/24 Metformin Hydrochloride (Metformin Hcl) 1,000 Mg Tab, 1 TAB PO BID for DIABETES 08/30/20 Past Medical History Cardiac: Hyperlipidemia Endocrine: NIDDM Past Surgical History: Appendectomy, Hysterctomy, Tonsillectomy Patient Family History: FH: cancer G8 MOTHER G8 FATHER Smoker: No Hx (Negative) Alocohol: None Drugs: None Domestic Violence: Neg Review of Systems Constitutional: Weakness (generalized ) Ears, Nose, & Throat: No symptom reported Eyes: No symptom reported Pulmonary/Respiratory: No symptom reported Cardiovascular: No symptom reported Gastrointestinal: No symptom reported Genitourinary: No symptom reported Musculoskeletal: No symptom reported Skin: No symptom reported Psychiatric: No symptom reported Endocrine: No symptom reported Hemotologic/Lymphatic: No symptom reported H&P Exam Vital Signs Vital Signs Date Time Temp Pulse Resp B/P (MAP) Pulse Ox O2 Delivery O2 Flow Rate FiO2 09/28/24 01:00 99.4 101 29 118/46 (70) 92 99.4 09/27/24 21:45 Room Air* 0 21 General Appeara: Well developed, Well nourished, Normal Appearance Head Exam: Normal inspection Neck Exam: Normal inspection, Non-tender, Normal alignment Eye Exam: bilateral eye Normal inspection, bilateral eye PERRL, bilateral eye EOMI Ear Exam: bilateral ear Auricle normal Nasal Exam: Normal inspection Mouth: Normal Inspection Pulmonary/Respiratory: Normal inspection, Normal breath sounds, Chest non- tender, Lungs clear Cardiovascular/Chest: Normal inspection, Regular rate, Normal Rhythm Peripheral Pulses: 2+ dorsalis pedis (R), 2+ dorsalis pedis (L), 2+ Radial (R), 2+ Radial (L) Abdominal Exam: Normal bowel sounds, Soft, No tenderness, No hepatospenomegaly, No masses Rectal Exam: Deferred Back Exam: Normal inspection Male Genital Exam: Normal genitalia, Normal prostate 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: Normal hearing, Normal speech, PERRL Deep Tendon Ref: All intact Neuro/Mental St: Alert, Oriented Appearance: Appropriate appearance, Appropriate insight Eye contact/ Speech: Cooperative, Good eye contact, Normal speech Coordination/Gait: Normal finger->nose, Normal gait, Negative Romberg's sign Skin Exam: Normal inspection, Normal color, Warm/dry SEPSIS Sepsis Screen Date sepsis recognized/suspect: Sep 27, 2024 Time Sepsis recognized/suspect: 2309 Recent Procedure: No On Antibiotic Therapy: No Respiratory Rate >20: Yes (RR 27) Heart Rate >90: Yes (HR 102) Temp<36 C (96.8 F) or >38.3 C: No SBP <90 or MAP <65 mmHG: No New Acute Mental Status Change: No Is the patient on CPAP, BIPAP,: No Physician Orders Chest Portable (09/27/24 21:37) Abg W/ Co-Ox (09/27/24 23:14) Abg W/ Co-Ox (09/27/24 23:15) Blood Culture (09/27/24 23:16) Admit (09/27/24 23:18) Basic Metabolic Panel (09/29/24 18:00) Magnesium (09/28/24 06:00) Magnesium (09/28/24 12:00) Magnesium (09/28/24 18:00) Magnesium (09/29/24 00:00) Magnesium (09/29/24 06:00) Stat Ekg For Chest Pain (09/27/24 23:18) Notify Md Of Changes From Base (09/27/24 23:18) Federal Mediation Commissioner For 24 Hours (09/27/24 23:18) Emergency Dysrhythmia Protocol (09/27/24 23:18) Rhythm Strips Once Every Shift (09/27/24 23:18) Oxygen By Nasal Cannula (09/27/24 23:18) Insulin Drip Protocol (09/27/24 ) Sodium Chloride 0.9% (09/28/24 05:30) Dextrose 50% Syringe (09/27/24 23:30) Abg W/ Co-Ox (09/27/24 23:18) Neurological Assessment (09/27/24 23:18) Vs/Hemodynamics .PER UNIT PROTOCOL (09/27/24 23:18) D5w/Sod Chlo 0.9% (D5w Ns 0.9%) (09/27/24 23:30) Check Blood Glucose (09/27/24 23:18) Consistent Carb(Ccho)Diabetes (09/28/24 Breakfast) Complete Blood Count (09/28/24 04:00) Famotidine Tablet (Pepcid Tablet) (09/28/24 10:00) Enoxaparin Sodium (Lovenox) (09/28/24 10:00) Melatonin (Melatonin) (09/27/24 23:30) Acetaminophen Tablet (Tylenol Tablet) (09/27/24 23:30) Ondansetron Hcl (Zofran) (09/27/24 23:30) Communication Order (09/27/24:25) Glucose Blood (Accu-Chek Comfort Curve T (09/28/24 02:00) Insulin Drip 100 Unit/100ml (Myxredlin 1 (09/28/24 02:00) Sodium Bicarb 50meq/50ml Vial (09/28/24 03:00) Basic Metabolic Panel (09/30/24 00:00) Basic Metabolic Panel (09/30/24 04:00) Basic Metabolic Panel (09/28/24 06:00) Basic Metabolic Panel (09/28/24 10:00) Basic Metabolic Panel (09/28/24 14:00) Basic Metabolic Panel (09/28/24 03:00) Communication Order (09/28/24 02:55) Stool Occult Blood (09/28/24 02:55) Complete Blood Count (09/29/24 05:00) Complete Blood Count (09/30/24 05:00) Complete Blood Count (10/01/24 05:00) Abg W/ Co-Ox (09/28/24 06:00) Vital Signs Date Time Temp Pulse Resp B/P (MAP) Pulse Ox O2 Delivery O2 Flow Rate FiO2 09/28/24 01:00 99.4 101 29 118/46 (70) 92 99.4 09/28/24 00:00 102 09/27/24 23:00 97 27 114/47 (69) 98 09/27/24 21:50 104 09/27/24 21:45 98.4 104 14 168/70 (102) 96 98.4 09/27/24 21:45 104 14 96 Room Air* 0 21 09/27/24 21:30 98.6 103 30 136/83 97 98.6 09/27/24 21:27 104 Laboratory Tests Test 09/27/24 21:44 09/27/24 23:28 White Blood Count 12.1 10^3/uL (4.4-10.8) H 10.1 10^3/uL (4.4-10.8) Lactic Acid Level 1.8 mmol/L (0.4-2.0) Medications Medications Dose Ordered Sig/Barbara Route Start Time Stop Time Status Last Admin Dose Admin Ceftriaxone Sodium/Dextrose 50 ml @ 50 mls/hr ONCE ONCE IV 09/27/24 23:15 09/28/24 00:14 DC 09/27/24 23:29 50 MLS/HR Diagnostic Test (Pha) 1 strip Q90MIN 09/28/24 00:00 09/28/24 01:36 DC 09/28/24 01:28 1 STRIP Diagnostic Test (Pha) 1 strip Q90MIN@0200,0330,0500,0730 09/28/24 02:00 09/28/24 01:57 1 STRIP Insulin Human (Reg)/Sodium Chloride 100 ml @ 0.5 mls/hr Q24H IV 09/27/24 23:30 09/28/24 01:37 DC 09/28/24 00:33 3 MLS/HR Insulin Human (Reg)/Sodium Chloride 100 ml @ 0.5 mls/hr Q24H IV 09/28/24 02:00 09/28/24 02:00 3 MLS/HR Insulin Human Regular 10 units ONCE ONCE IV 09/27/24 22:45 09/27/24 22:46 DC 09/27/24 22:48 10 UNITS Sodium Chloride 1,000 ml @ 1,000 mls/hr Q1H ONCE IV 09/27/24 21:45 09/27/24 22:44 DC 09/27/24 22:05 1,000 MLS/HR Sodium Chloride 1,000 ml @ 1,000 mls/hr Q1H ONCE IV 09/27/24 22:45 09/27/24 23:44 DC 09/27/24 23:00 1,000 MLS/HR Labs/Xrays Labs Test 09/28/24 01:57 09/28/24 00:00 09/27/24 23:28 09/27/24 23:25 Range/Units POC Glucose 263 H 70-106 mg/dl Urine Color Light-yellow Yellow Urine Clarity Clear Clear Urine pH 5.0 5.0-9.[address] 1.015 1.001-1.035 Urine Protein Trace H Negative Urine Ketones 3+ H Negative Urine Blood 1+ H Negative /uL Urine Nitrite Negative Negative Urine Bilirubin Negative Negative Urine Urobilinogen Normal Negative mg/dL Urine Leukocyte Esterase Negative Negative /uL Urine RBC 2 0 - 4 /hpf Urine Microscopic WBC 7 H 0-5 /HPF Urine Squamous Epithelial Cells Few <5 /hpf Urine Bacteria None seen None Seen /hpf Urine Glucose 4+ H Normal mg/dL White Blood Count 10.1 4.4-10.8 10^3/uL Red Blood Count 3.81 L 4.0-5.20 10^6/uL Hemoglobin 10.4 L 12.2-16.2 g/dL Hematocrit 31.6 #L 36.0-46.0 % Mean Corpuscular Volume 82.9 80.0-100.0 fL Mean Corpuscular Hemoglobin 27.2 L 28.0-32.0 pg Mean Corpuscular Hemoglobin Concent 32.8 32.0-36.0 g/dL Red Cell Distribution Width 14.8 H 11.8-14.3 % Platelet Count 247 140-450 10^3/uL Mean Platelet Volume 7.7 6.9-10.8 fL Neutrophils (%) (Auto) 87.9 H 37.0-80.0 % Lymphocytes (%) (Auto) 5.4 L 10.0-50.0 % Monocytes (%) (Auto) 6.4 0.0-12.0 % Eosinophils (%) (Auto) 0.1 0.0-7.0 % Basophils (%) (Auto) 0.2 0.0-2.0 % Neutrophils # (Auto) 8.9 H 1.6-8.6 10 ^3/uL Lymphocytes # (Auto) 0.5 0.4-5.4 10 ^3/uL Monocytes # (Auto) 0.6 0-1.3 10 ^3/uL Eosinophils # (Auto) 0 0-0.8 10 ^3/uL Basophils # (Auto) 0 0-0.2 10 ^3/uL Nucleated Red Blood Cells 0.0 % Sodium Level 135 #L 136-145 mmol/L Potassium Level 3.6 3.5-5.1 mmol/L Chloride Level 106 # 98-107 mmol/L Carbon Dioxide Level 11 L 20-31 mmol/L Anion Gap 18 H 5-15 Blood Urea Nitrogen 35 H 9-23 mg/dL Creatinine 1.29 H 0.550-1.02 mg/dL Glomerular Filtration Rate Calc 44 >90 mL/min BUN/Creatinine Ratio 27.1 H 10.0-20.0 Serum Glucose 368 H 74-106 mg/dL Lactic Acid Level 1.8 0.4-2.0 mmol/L Calcium Level 7.7 L 8.7-10.4 mg/dL Blood Gas Specimen Type Arterial Blood Gas Sample Site Right radial Blood Gas Patient Temperature 37.0 Arterial Blood Date Drawn [id number] Arterial Blood pH 7.252 L 7.350-7.450 Arterial Blood Partial Pressure CO2 21.3 L 32.0-45.0 mmHg Arterial Blood Partial Pressure O2 82.2 L 83.0-108.0 mmHg Arterial Blood HCO3 9.2 L 21.0-28.0 mmol/L Arterial Blood Oxygen Saturation 94.0 94.0-98.0 % Arterial Blood Base Excess -16.2 L -2.0-3.0 mmol/L Arterial Blood Oxyhemoglobin 93.2 L 94.0-98.0 % Arterial Blood Carboxyhemoglobin 0.5 0.5-1.5 % Arterial Blood Methemoglobin 0.4 0.0-1.5 % Christian Test Yes Blood Gas Total Hemoglobin 10.80 L 12.0-16.0 g/dL Blood Gas Modality Room air FiO2 % 21.0 Test 09/27/24 21:44 Range/Units Serum Osmolality 323 H 278-298 mOsm/kg Phosphorus Level 3.8 2.4-5.1 mg/dL Magnesium Level 1.8 1.6-2.6 mg/dL Total Bilirubin 0.3 0.2-1.0 mg/dL Aspartate Amino Transferase (AST) 12 L 13-40 U/L Alanine Aminotransferase (ALT) 14 7-40 U/L Alkaline Phosphatase 153 H 46-116 U/L Total Protein 6.5 5.7-8.2 g/dL Albumin 4.0 3.2-4.8 g/dL Beta-Hydroxybutyric Acid > 4.500 H < 0.4 mmol/L Assessment/Plan Problem List: (1) Diabetic ketoacidosis Plan This is a 74 yo female with known history of DM2, HLD, HTN, surgical history of appendectomy, hysterectomy, tonsillectomy who presents to the hospital with gene ralized weakness. Patient found to have 1. DKA 2. ALFA 3. Dehydration 4. chronic hypertension Plan Admit STEPHANIE Insulin drip as per DKA protocol IV fluids serial BMP, Mg level, monitor electrolytes replenish as needed Glucose monitoring every hour ABG Discussed all above with patient who verbalized agreement and understanding of care plan. All questions were answered. Discussed with supervising MD. Plan discussed with: Patient, Other Code Visit Code Visit Total Time (mins): 45 MARIVEL VEGA Sep 28, 2024 03:08 YNES PAYNE MD Oct 03, 2024 17:49
[2024-09-28] MEDS: SODIUM BICARB 8.4% 50Meq/50ml SYR Vial IV ONE (03:30)
[2024-09-28] MEDS: D5W/SOD CHLO 0.9% 1,000 ML IV SCH (03:40)
[2024-09-28 03:46] LABS: Anion Gap 11 (5-15); Potassium 3.9 mmol/L (3.5-5.1)
[2024-09-28 03:52] LABS: BUN/Creatinine Ratio 22.2 (10.0-20.0)
[2024-09-28 03:55] LABS: Blood Urea Nitrogen 26 mg/dL (9-23); Calcium 8.0 mg/dL (8.7-10.4); Carbon Dioxide 15 mmol/L (20-31); Chloride 109 mmol/L (98-107); Glucose 232 mg/dL (74-106); Sodium 135 mmol/L (136-145)
[2024-09-28 04:01] LABS: Hematocrit 37.8 % (36.0-46.0); Hemoglobin 11.7 g/dL (12.2-16.2); Mean Corpuscular Hemoglobin 26.9 pg (28.0-32.0); Mean Corpuscular Volume 87.3 fL (80.0-100.0); Nucleated Red Blood Cells % 0.1 %
[2024-09-28 06:42] LABS: Calcium 8.8 mg/dL (8.7-10.4); Chloride 106 mmol/L (98-107); Potassium 4.0 mmol/L (3.5-5.1)
[2024-09-28 06:43] LABS: Anion Gap 12 (5-15)
[2024-09-28 06:45] LABS: Carbon Dioxide 18 mmol/L (20-31); Sodium 136 mmol/L (136-145)
[2024-09-28 06:49] LABS: BUN/Creatinine Ratio 20.5 (10.0-20.0)
[2024-09-28 06:52] LABS: Blood Urea Nitrogen 24 mg/dL (9-23); Glucose 206 mg/dL (74-106); Magnesium 1.5 mg/dL (1.6-2.6)
[2024-09-28 06:56] LABS: Base Excess -3.3 mmol/L (-2.0-3.0)
[2024-09-28 08:00] VITALS: PULSE 105; RESP 17; O2SAT 97
[2024-09-28] MEDS: ENOXAPARIN SOD 40 MG/0.4 ML SYRINGE SC SCH (10:07)
[2024-09-28] MEDS: FAMOTIDINE 20 MG TAB PO SCH (10:08)
[2024-09-28] MEDS: SODIUM CHLORIDE 0.9% 1,000 ML IV SCH ×2 (10:08→14:45)
[2024-09-28 11:13] LABS: Anion Gap 11 (5-15); Calcium 8.8 mg/dL (8.7-10.4); Chloride 105 mmol/L (98-107); Potassium 3.7 mmol/L (3.5-5.1); Sodium 136 mmol/L (136-145)
[2024-09-28 11:15] LABS: Carbon Dioxide 20 mmol/L (20-31)
[2024-09-28 11:19] LABS: BUN/Creatinine Ratio 21.1 (10.0-20.0)
[2024-09-28 11:21] LABS: Blood Urea Nitrogen 23 mg/dL (9-23); Glucose 215 mg/dL (74-106); Magnesium 1.5 mg/dL (1.6-2.6)
[2024-09-28 13:58] LABS: Chloride 106 mmol/L (98-107); Potassium 3.8 mmol/L (3.5-5.1); Sodium 137 mmol/L (136-145)
[2024-09-28 13:59] LABS: Anion Gap 8 (5-15); Calcium 8.7 mg/dL (8.7-10.4); Carbon Dioxide 23 mmol/L (20-31)
[2024-09-28 14:04] LABS: BUN/Creatinine Ratio 22.8 (10.0-20.0); Blood Urea Nitrogen 21 mg/dL (9-23)
[2024-09-28 14:05] LABS: Glucose 167 mg/dL (74-106); Magnesium 1.4 mg/dL (1.6-2.6)
[2024-09-28] MEDS ORDERED: DEXTROSE (50%) 50ML SYRG IV PRN (14:30)
[2024-09-28] MEDS: PIPERACILLIN-TAZOB 3.375GM 100 ML IV SCH (14:39)
[2024-09-28 16:55] VITALS: BP 122/61; PULSE 108; PULSE 20; RESP 20; TEMP 99.7; O2SAT 96
[2024-09-28 17:30] VITALS: BP 122/61; PULSE 108; RESP 20; TEMP 99.1; O2SAT 96
[2024-09-28] MEDS: InsuLIN REG 1unit/0.01ml Soln (100units/ml) SC SCH ×2 (17:34→22:16)
--- NOTE | 2024-09-28 17:54 | DVHPN2 ---
Subjective This is a follow up on DKA the patient currently on insulin drip which will be turned off as DKA has been resolved. Changes from previous H/P or p: No Changes Objective Vitals Vital Signs Date Time Temp Pulse Resp B/P (MAP) Pulse Ox O2 Delivery O2 Flow Rate FiO2 09/28/24 15:00 98.5 110 18 114/70 (85) 95 98.5 09/28/24 08:00 Room Air* 0 21 Intake/Output Intake and Output 09/28/24 07:00 Intake Total 2500 ml Balance 2500 ml Intake IV Total 2500 ml Exam HEENT pupils are reactive Neck is supple CV is S1-S2 regular rate and rhythm Respiratory by the clear neck GI positive bowel sound Extremity no edema [employer] no motor deficit Medications Current Medications Medications Dose Ordered Sig/Barbara Route Start Time Stop Time Status Last Admin Dose Admin Famotidine 20 mg BID PO 09/28/24 10:00 09/28/24 10:08 20 MG Enoxaparin Sodium 40 mg DAILY SC 09/28/24 10:00 09/28/24 10:07 40 MG Melatonin 5 mg ONCE@2200 PRN PO 09/27/24 23:30 Acetaminophen 650 mg Q6HPRN PRN PO 09/27/24 23:30 Ondansetron HCl 4 mg Q6HPRN PRN IV 09/27/24 23:30 Piperacillin Sod/ Tazobactam Sod 100 ml @ 25 mls/hr Q8HR IV 09/28/24 14:00 09/28/24 14:39 25 MLS/HR Diagnostic Test (Pha) 1 strip ACHS 09/28/24 17:00 09/28/24 17:31 1 STRIP Insulin Human Regular HS SC 09/28/24 22:00 Insulin Human Regular AC SC 09/28/24 17:00 09/28/24 17:34 9 UNITS Dextrose 50 ml UD PRN IV 09/28/24 14:30 Sodium Chloride 1,000 ml @ 100 mls/hr Q10H IV 09/28/24 14:30 09/28/24 14:45 100 MLS/HR Laboratory Results Laboratory Tests 09/28/24 03:08 09/28/24 13:41 Chemistry Test 09/27/24 21:44 09/27/24 23:28 09/28/24 03:08 09/28/24 06:01 Albumin 4.0 g/dL (3.2-4.8) Calcium Level 8.9 mg/dL (8.7-10.4) 7.7 mg/dL (8.7-10.4) L 8.0 mg/dL (8.7-10.4) L 8.8 mg/dL (8.7-10.4) Magnesium Level 1.8 mg/dL (1.6-2.6) 1.5 mg/dL (1.6-2.6) L Phosphorus Level 3.8 mg/dL (2.4-5.1) Total Protein 6.5 g/dL (5.7-8.2) Test 09/28/24 10:11 09/28/24 13:41 Calcium Level 8.8 mg/dL (8.7-10.4) 8.7 mg/dL (8.7-10.4) Magnesium Level 1.5 mg/dL (1.6-2.6) L 1.4 mg/dL (1.6-2.6) L LFT Test 09/27/24 21:44 Alanine Aminotransferase (ALT) 14 U/L (7-40) Alkaline Phosphatase 153 U/L (46-116) H Aspartate Amino Transferase (AST) 12 U/L (13-40) L Total Bilirubin 0.3 mg/dL (0.2-1.0) Urinalysis Test 09/28/24 00:00 Urine Color Light-yellow (Yellow) Urine Clarity Clear (Clear) Urine pH 5.0 (5.0-9.0) Urine Specific [place] 1.015 (1.001-1.035) Urine Protein Trace (Negative) H Urine Ketones 3+ (Negative) H Urine Blood 1+ /uL (Negative) H Urine Nitrite Negative (Negative) Urine Bilirubin Negative (Negative) Urine Urobilinogen Normal mg/dL (Negative) Urine Leukocyte Esterase Negative /uL (Negative) Urine RBC 2 /hpf (0 - 4) Urine Microscopic WBC 7 /HPF (0-5) H Urine Squamous Epithelial Cells Few /hpf (<5) Urine Bacteria None seen /hpf (None Seen) Urine Glucose 4+ mg/dL (Normal) H Blood Gas Results Test 09/27/24 23:25 09/28/24 06:50 Arterial Blood pH 7.252 (7.350-7.450) 7.458 (7.350-7.450) FiO2 % 21.0 21.0 Microbiology Microbiology Date/Time Source Procedure Growth Status 09/27/24 23:29 Blood Blood Culture - Preliminary Resulted Assessment/Plan Assessment/Plan 74-year-old female with a known history of insulin-dependent diabetes mellitus type 2, hypertension, dyslipidemia presented to the hospital with generalized weakness found to have 1. Diabetic ketoacidosis 2. Diabetes mellitus type 2 3. Hypertension Four dyslipidemia -patient was on insulin drip which we turned off we will check Accu-Cheks AC and HS moderate dose sliding scale follow up blood cultures. Plan discussed with: Patient My Orders Orders - YNES PAYNE MD Procedure Category Date Status Time Piperacillin-Tazob PHA 09/28/24 In Process 3.375gm (Zosyn 3.375g 14:00 Blood Culture ALEXA 09/28/24 Logged 14:08 Transfer Orders XFER 09/28/24 Transmitted 14:30 Glucose Blood PHA 09/28/24 In Process (Accu-Chek Comfort 17:00 Insulin R (Human) PHA 09/28/24 In Process (Insulin R) 22:00 Insulin R (Human) PHA 09/28/24 In Process (Insulin R) 17:00 Dextrose 50% Syringe PHA 09/28/24 In Process 14:30 Sodium Chloride 0.9% PHA 09/28/24 In Process 14:30 Date of Service: Sep 28, 2024 Billing Provider: YNES PAYNE MD Common Visit Codes: NOT BILLABLE YNES PAYNE MD Sep 28, 2024 17:54
[2024-09-28 20:00] VITALS: PULSE 107; RESP 18
[2024-09-28 21:00] VITALS: BP 117/65; PULSE 103; RESP 16; TEMP 98.8; O2SAT 96
[2024-09-28] MEDS: MELATONIN 5 MG TAB PO PRN (22:05)
[2024-09-29] VITALS (8 sets, daily range): BP systolic 115–147; BP diastolic 60–87; PULSE 63–107; RESP 16–20; TEMP 97.2–100.5; O2SAT 94–97
[2024-09-29] MEDS: ACETAMINOPHEN 325 MG TAB PO PRN (01:04)
[2024-09-29 07:13] LABS: Hemoglobin 10.9 g/dL (12.2-16.2)
[2024-09-29 07:18] LABS: Hematocrit 32.2 % (36.0-46.0); Mean Corpuscular Hemoglobin 27.0 pg (28.0-32.0); Mean Corpuscular Volume 79.8 fL (80.0-100.0); Nucleated Red Blood Cells % 0.0 %
--- NOTE | 2024-09-29 17:12 | DVHPN2 ---
Subjective Patient blood culture came back Gram-negative rods positive Changes from previous H/P or p: No Changes Objective Vitals Vital Signs Date Time Temp Pulse Resp B/P (MAP) Pulse Ox O2 Delivery O2 Flow Rate FiO2 09/29/24 13:00 98.2 91 17 147/82 (103) 97 98.2 09/29/24 08:00 Room Air* 0 21 Intake/Output Intake and Output 09/29/24 07:00 Intake Total 1100 ml Balance 1100 ml Intake Oral 700 ml IV Total 400 ml # Voids 7 Exam HEENT pupils are reactive Neck is supple CV is S1-S2 regular rate and rhythm Respiratory clear neck GI positive bowel sound Extremity no edema [employer] no motor deficits Medications Current Medications Medications Dose Ordered Sig/Barbara Route Start Time Stop Time Status Last Admin Dose Admin Famotidine 20 mg BID PO 09/28/24 10:00 09/29/24 09:48 20 MG Enoxaparin Sodium 40 mg DAILY SC 09/28/24 10:00 09/29/24 09:49 40 MG Melatonin 5 mg ONCE@2200 PRN PO 09/27/24 23:30 09/28/24 22:05 5 MG Acetaminophen 650 mg Q6HPRN PRN PO 09/27/24 23:30 09/29/24 01:04 650 MG Ondansetron HCl 4 mg Q6HPRN PRN IV 09/27/24 23:30 Piperacillin Sod/ Tazobactam Sod 100 ml @ 25 mls/hr Q8HR IV 09/28/24 14:00 09/29/24 15:08 25 MLS/HR Diagnostic Test (Pha) 1 strip ACHS 09/28/24 17:00 09/29/24 12:01 1 STRIP Insulin Human Regular HS SC 09/28/24 22:00 09/28/24 22:16 4 UNITS Insulin Human Regular AC SC 09/28/24 17:00 09/29/24 12:09 12 UNITS Dextrose 50 ml UD PRN IV 09/28/24 14:30 Sodium Chloride 1,000 ml @ 100 mls/hr Q10H IV 09/28/24 14:30 09/29/24 09:49 100 MLS/HR Guaifenesin/ Dextromethorphan 10 ml Q4HP PRN PO 09/29/24 15:15 Laboratory Results Laboratory Tests 09/28/24 13:41 09/29/24 06:59 Chemistry Test 09/29/24 00:25 09/29/24 06:59 Magnesium Level 1.3 mg/dL (1.6-2.6) L 1.4 mg/dL (1.6-2.6) L Urinalysis Test 09/28/24 00:00 Urine Color Light-yellow (Yellow) Urine Clarity Clear (Clear) Urine pH 5.0 (5.0-9.0) Urine Specific [place] 1.015 (1.001-1.035) Urine Protein Trace (Negative) H Urine Ketones 3+ (Negative) H Urine Blood 1+ /uL (Negative) H Urine Nitrite Negative (Negative) Urine Bilirubin Negative (Negative) Urine Urobilinogen Normal mg/dL (Negative) Urine Leukocyte Esterase Negative /uL (Negative) Urine RBC 2 /hpf (0 - 4) Urine Microscopic WBC 7 /HPF (0-5) H Urine Squamous Epithelial Cells Few /hpf (<5) Urine Bacteria None seen /hpf (None Seen) Urine Glucose 4+ mg/dL (Normal) H Microbiology Microbiology Date/Time Source Procedure Growth Status 09/27/24 23:29 Blood Blood Culture - Preliminary Resulted Assessment/Plan Assessment/Plan 74-year-old female with a known history of insulin-dependent diabetes mellitus type 2, hypertension, dyslipidemia presented to the hospital with generalized weakness found to have 1. Diabetic ketoacidosis 2. Diabetes mellitus type 2 3. Hypertension 4. Dyslipidemia 5. Gram negative bacteremia, repeat blood cultures -start IV Zosyn resume insulin, Accu-Cheks VCA and h.s. low-dose sliding scale -once repeat blood cultures are negative patient can be discharged on p.o. antibiotics. Plan discussed with: Patient My Orders Orders - YNES PAYNE MD Procedure Category Date Status Time Guaifenesin-Dextromet PHA 09/29/24 In Process Liquid (Robitussin 15:15 Date of Service: Sep 29, 2024 Billing Provider: YNES PAYNE MD Common Visit Codes: NOT BILLABLE YNES PAYNE MD Sep 29, 2024 17:12
[2024-09-29 18:40] LABS: Chloride 105 mmol/L (98-107); Sodium 136 mmol/L (136-145)
[2024-09-29 18:41] LABS: Anion Gap 13 (5-15)
[2024-09-29 18:46] LABS: BUN/Creatinine Ratio 13.5 (10.0-20.0); Blood Urea Nitrogen 14 mg/dL (9-23)
[2024-09-29 19:00] LABS: Calcium 8.0 mg/dL (8.7-10.4); Carbon Dioxide 18 mmol/L (20-31); Glucose 293 mg/dL (74-106); Potassium 3.4 mmol/L (3.5-5.1)
[2024-09-30] VITALS (9 sets, daily range): BP systolic 106–140; BP diastolic 64–73; PULSE 91–105; RESP 16–20; TEMP 37.2; O2SAT 93–97
[2024-09-30 00:46] LABS: Sodium 139 mmol/L (136-145)
[2024-09-30 00:47] LABS: Anion Gap 8 (5-15); Carbon Dioxide 23 mmol/L (20-31)
[2024-09-30 00:48] LABS: Calcium 7.9 mg/dL (8.7-10.4); Chloride 108 mmol/L (98-107); Potassium 3.3 mmol/L (3.5-5.1)
[2024-09-30 00:52] LABS: BUN/Creatinine Ratio 15.7 (10.0-20.0); Blood Urea Nitrogen 17 mg/dL (9-23)
[2024-09-30 01:15] LABS: Glucose 232 mg/dL (74-106)
[2024-09-30 07:12] LABS: Chloride 106 mmol/L (98-107); Sodium 140 mmol/L (136-145)
[2024-09-30 07:13] LABS: Anion Gap 15 (5-15)
[2024-09-30 07:18] LABS: BUN/Creatinine Ratio 12.7 (10.0-20.0); Blood Urea Nitrogen 14 mg/dL (9-23); Carbon Dioxide 19 mmol/L (20-31); Glucose 265 mg/dL (74-106); Potassium 3.1 mmol/L (3.5-5.1)
[2024-09-30 07:19] LABS: Calcium 8.1 mg/dL (8.7-10.4)
[2024-09-30 07:42] LABS: Hematocrit 32.2 % (36.0-46.0); Hemoglobin 10.9 g/dL (12.2-16.2); Mean Corpuscular Hemoglobin 27.2 pg (28.0-32.0); Mean Corpuscular Volume 80.3 fL (80.0-100.0)
[2024-09-30 08:13] LABS: Total Cells Counted 100.0 (100)
[2024-09-30] MEDS: guaiFENesin-DM 100/10mg/5ml SYR PO PRN (08:14)
[2024-09-30] MEDS: FAMOTIDINE 20 MG TAB PO SCH (09:17)
[2024-09-30] MEDS ORDERED: CEFD300C2 PO (15:20)
--- NOTE | 2024-09-30 15:22 | DVHDS2 ---
Discharge Summary Date of Admission Sep 27, 2024 at 23:18 Date of Discharge: Sep 30, 2024 Labs/Diagnostic Data: Laboratory Results Test 09/30/24 12:11 09/30/24 06:07 09/29/24 06:59 09/28/24 06:50 POC Glucose 283 mg/dl (70-106) White Blood Count 10.6 10^3/uL (4.4-10.8) Red Blood Count 4.01 10^6/uL (4.0-5.20) Hemoglobin 10.9 g/dL (12.2-16.2) Hematocrit 32.2 % (36.0-46.0) Mean Corpuscular Volume 80.3 fL (80.0-100.0) Mean Corpuscular Hemoglobin 27.2 pg (28.0-32.0) Mean Corpuscular Hemoglobin Concent 33.8 g/dL (32.0-36.0) Red Cell Distribution Width 14.5 % (11.8-14.3) Platelet Count 338 10^3/uL (140-450) Mean Platelet Volume 7.9 fL (6.9-10.8) Neutrophils (%) (Auto) % (37.0-80.0) Lymphocytes (%) (Auto) % (10.0-50.0) Monocytes (%) (Auto) % (0.0-12.0) Basophils (%) (Auto) % (0.0-2.0) Neutrophils # (Auto) 10 ^3/uL (1.6-8.6) Lymphocytes # (Auto) 10 ^3/uL (0.4-5.4) Monocytes # (Auto) 10 ^3/uL (0-1.3) Differential Total Cells Counted 100.0 (100) Neutrophils % (Manual) 71 (37.0-80.0) Band Neutrophils % (Manual) 2 Lymphocytes % (Manual) 23 (10.0-50.0) Monocytes % (Manual) 4 (0-12) Eosinophils % (Manual) 0 (0-7) Basophils % (Manual) 0 (0.0-2.0) Metamyelocytes % (manual) 0 Myelocytes % (Manual) 0 Promyelocytes % (Manual) 0 Blast Cells % (Manual) 0 Reactive Lymphocytes 0 Platelet Estimate Adequate Sodium Level 140 mmol/L (136-145) Potassium Level 3.1 mmol/L (3.5-5.1) Chloride Level 106 mmol/L (98-107) Carbon Dioxide Level 19 mmol/L (20-31) Anion Gap 15 (5-15) Blood Urea Nitrogen 14 mg/dL (9-23) Creatinine 1.10 mg/dL (0.550-1.02) Glomerular Filtration Rate Calc 53 mL/min (>90) BUN/Creatinine Ratio 12.7 (10.0-20.0) Serum Glucose 265 mg/dL (74-106) Calcium Level 8.1 mg/dL (8.7-10.4) Eosinophils (%) (Auto) 0.4 % (0.0-7.0) Eosinophils # (Auto) 0 10 ^3/uL (0-0.8) Basophils # (Auto) 0 10 ^3/uL (0-0.2) Nucleated Red Blood Cells 0.0 % Magnesium Level 1.4 mg/dL (1.6-2.6) Blood Gas Specimen Type Arterial Blood Gas Sample Site Left radial Blood Gas Patient Temperature 37.0 Arterial Blood Date Drawn [id number] Arterial Blood pH 7.458 (7.350-7.450) Arterial Blood Partial Pressure CO2 28.2 mmHg (32.0-45.0) Arterial Blood Partial Pressure O2 65.8 mmHg (83.0-108.0) Arterial Blood HCO3 19.5 mmol/L (21.0-28.0) Arterial Blood Oxygen Saturation 93.8 % (94.0-98.0) Arterial Blood Base Excess -3.3 mmol/L (-2.0-3.0) Arterial Blood Oxyhemoglobin 92.9 % (94.0-98.0) Arterial Blood Carboxyhemoglobin 0.9 % (0.5-1.5) Arterial Blood Methemoglobin 0.1 % (0.0-1.5) Christian Test Yes Blood Gas Total Hemoglobin 10.80 g/dL (12.0-16.0) Blood Gas Modality Room air FiO2 % 21.0 Test 09/28/24 00:00 09/27/24 23:28 09/27/24 21:44 Urine Color Light-yellow (Yellow) Urine Clarity Clear (Clear) Urine pH 5.0 (5.0-9.0) Urine Specific [place] 1.015 (1.001-1.035) Urine Protein Trace (Negative) Urine Ketones 3+ (Negative) Urine Blood 1+ /uL (Negative) Urine Nitrite Negative (Negative) Urine Bilirubin Negative (Negative) Urine Urobilinogen Normal mg/dL (Negative) Urine Leukocyte Esterase Negative /uL (Negative) Urine RBC 2 /hpf (0 - 4) Urine Microscopic WBC 7 /HPF (0-5) Urine Squamous Epithelial Cells Few /hpf (<5) Urine Bacteria None seen /hpf (None Seen) Urine Glucose 4+ mg/dL (Normal) Lactic Acid Level 1.8 mmol/L (0.4-2.0) Serum Osmolality 323 mOsm/kg (278-298) Phosphorus Level 3.8 mg/dL (2.4-5.1) Total Bilirubin 0.3 mg/dL (0.2-1.0) Aspartate Amino Transferase (AST) 12 U/L (13-40) Alanine Aminotransferase (ALT) 14 U/L (7-40) Alkaline Phosphatase 153 U/L (46-116) Total Protein 6.5 g/dL (5.7-8.2) Albumin 4.0 g/dL (3.2-4.8) Beta-Hydroxybutyric Acid > 4.500 mmol/L (< 0.4) Other Laboratory Tests 09/30/24 06:07 Brief Hx & Hospital Course: 74-year-old female with a known history of insulin-dependent diabetes mellitus type 2, hypertension, dyslipidemia presented to the hospital with generalized weakness found to have diabetic ketoacidosis. Patient was eventually admitted started on insulin drip. The patient's anion gap has been closed. Patient is currently tolerating diet. Patient is being discharged under stable condition. Condition at Discharge: Stable Final Diagnosis/Problems List 74-year-old female with a known history of insulin-dependent diabetes mellitus type 2, hypertension, dyslipidemia presented to the hospital with generalized weakness found to have 1. Diabetic ketoacidosis 2. Diabetes mellitus type 2 3. Hypertension Four dyslipidemia Discharge Disposition: Home with Health Services SNF Discharge Will this Physician continue t: No Discharge Instruct/Medications Diet: Cardiac 2g Na,low cholest Diet comment: 1800 ADA diet Activity: No Restrictions, As Tolerated Follow Up/Referral: Follow up with the PCP in 1 week Follow up with Dr. Kassandra Mcwilliams , infectious disease in 1 week Medications: Medication as prescribed and reconciled. Scheduled Cefdinir (Cefdinir), 1 CAP PO BID Ezetimibe (Ezetimibe), 1 TAB PO DAILY, (Reported) Insulin Detemir (Levemir), 25 UNIT SC BID, (Reported) Losartan Potassium (Losartan Potassium), 25 MG PO BID Metformin Hydrochloride (Metformin Hcl), 1 TAB PO BID, (Reported) Semaglutide (Rybelsus), 1 TAB PO DAILY, (Reported) Sertraline HCl (Sertraline HCl), 1 TAB PO DAILY, (Reported) Durable Medical Equipment Misc. Devices (Blood Pressure Monitor), EA XX DAILY, (DME) Discharge Statement: "Patient was advised to return to the ER or call 911 if any headaches, dizziness, shortness of breath, chest pain, abdominal pain, bleeding, fevers, or worsening of medical condition. Patient was counseled about treatment plan, medications, possible side effects, patientverbalized understanding. All questions were answered to the best of my ability. This discharge took greater then 30 minutes in planning, reviewing documentation, counseling the patient, and discussing with other team members." ASSESSMENT ASSESSMENT Assessment 4-year-old female with a known history of insulin-dependent diabetes mellitus type 2, hypertension, dyslipidemia presented to the hospital with generalized weakness found to have 1. Diabetic ketoacidosis 2. Diabetes mellitus type 2 3. Hypertension Four dyslipidemia Date of Service: Sep 30, 2024 Billing Provider: YNES PAYNE MD Common Visit Codes: NOT BILLABLE YNES PAYNE MD Sep 30, 2024 15:22
[2024-09-30] MEDS: POTASSIUM EFFERVESENT TAB 25 MEQ PO ONE (16:35)
[2024-09-30] MEDS: POTASSIUM CHL 20MEQ/100ML 100 ML IV ONE (18:23)
== END 2024-09-30 21:03 | disposition home or self-care (01) | DRG 682 ==
LOC: ER 21:25 → EDBD 21:25 → OVERFLOW 23:18 → TELE-WESTW 09-28 16:31
PROVIDERS: ADMIT Internal Medicine; ATTEND Internal Medicine
DX: N17.0 Acute kidney failure with tubular necrosis (principal); E11.10 Type 2 diabetes mellitus with ketoacidosis without coma; E78.5 Hyperlipidemia, unspecified; I10 Essential (primary) hypertension; E86.0 Dehydration; Z79.4 Long term (current) use of insulin; Z90.710 Acquired absence of both cervix and uterus; Z80.9 Family history of malignant neoplasm, unspecified; Z90.49 Acquired absence of other specified parts of digestive tract; Z79.84 Long term (current) use of oral hypoglycemic drugs
CPT/HCPCS: 36415; 36600; 71045; 80048; 80053; 81001; 82010; 82805; 82962; 83605; 83735; 83930; 84100; 85007; 85025; 85027; 87040; 87077; 87186; 93005; 96365; 96375; G0378; J1815; J2543; J3480